=== PATIENT | female | born 1945 | race Caucasian/White ===

== ENCOUNTER 2022-12-11 17:04 | Inpatient (IN) | payer MEDICARE, OTHER, SELFPAY ==
--- NOTE | ~2022-12-11 | XR_ITS ---
EXAM: XR ankle RT min 3V, XR foot RT min 3V DATE: 12/11/2022 17:58 HISTORY: fall EARLIER TODAY WITH FX DX ALTHOUGH PRIOR XYS NOT AVAIL. . COMPARISON: None available. FINDINGS: Osseous detail obscured partially by overlying cast material. Decreased mineralization. Mil dly displaced transverse fracture of the right medial malleolus. Mildly displaced oblique fracture of the distal right fibula, with extension to the joint line (Sharp type B). Nondisplaced right posteri or malleolar fracture. Possible osseous fragment overlying the lateral aspect of the talus, difficult to visualize due to overlying cast material. No lytic or blastic lesion. Joint spaces are maintained . Achilles and plantar enthesopathy No erosion or periosteal change. Soft tissues within normal limit s. IMPRESSION: Trimalleolar right ankle fracture. Possible lateral talar process fracture. Reviewed, dictated and finalized at location K. IMPRESSION: Trimalleolar right ankle fracture. Possible lateral talar process f racture.
--- NOTE | ~2022-12-11 | XR_ITS ---
EXAMINATION: XR surgery orthopedic DATE: 12/12/2022 16:10 CDT INDICATION: ORIF RIGHT ANKLE . TECHNIQUE: 7 fluoroscopic images of the right ankle were obtained during right ankle ORIF performed b y the surgeon. I was not present in the operating room. Fluoroscopy exposure time was 54.7 seconds. A ir Kerma 2.89 mGy. DAP [id number] mGym2. COMPARISON: 12/11/2022 FINDINGS: The medial malleolus is fixated by cannulated screws. Intramedullary jonathan fixation of the distal fibul a. No unexpected radiopaque foreign body. IMPRESSION: Fluoroscopic documentation of right ankle ORIF. Please refer to the operative note for complete proce dural details. Reviewed, dictated and finalized at location K. IMPRESSION: Fluoroscopic documentation of right ankle ORIF. Please refer to the operative n ote for complete procedural details.
[2022-12-11 17:06] VITALS: BP 144/56; PULSE 67; RESP 17; TEMP 36.3; O2SAT 98
--- NOTE | 2022-12-11 17:26 | PC.NURSE ---
EDP at bedside to assess pt.
--- NOTE | 2022-12-11 17:49 | ED.GENADULT ---
HPI - General Adult General Chief complaint: Extremity Injury, Lower Stated complaint: right foot fracture Time Seen by Provider: 12/11/22 17:11 Source: patient Mode of arrival: ambulatory Limitations: no limitations History of Present Illness HPI narrative: This is a 77-year-old female who presents to the ED with chief complaint of a right ankle fracture diagnosed at an outside facility in [place] today. Patient states that she was walking downstairs and fell down 5 stairs during the injury and subsequently hurt her ankle. She was seen in an urgent care and diagnosed with right distal tibia-fibula fracture and was told she would likely need surgery. Patient states that she lives here and would rather have surgery here within [place]. She states she called someone who worked with Dr. Parikh and was told to come to the [facility] she may need surgery. She had the ankle splinted and that urgent care. Denies any further complaint. PMH hypothyroidism and HTN Related Data Home Medications Medication Instructions Recorded Confirmed escitalopram oxalate 10 mg tablet 20 mg PO DAILY 12/11/22 12/11/22 levothyroxine 100 mcg tablet 100 mcg PO DAILY 12/11/22 12/11/22 losartan 100 mg tablet 100 mg PO DAILY 12/11/22 12/11/22 omeprazole 20 mg capsule,delayed 20 mg PO DAILY 12/11/22 12/11/22 release Allergies Allergy/AdvReac Type Severity Reaction Status Date / Time No Known Allergies Allergy Verified 12/11/22 19:28 Review of Systems Review of Systems: CONSTITUTIONAL: Denies fever, chills, or sweats. SKIN: Denies rash or itching. MUSCULOSKELETAL: See HPI NEUROLOGIC: Denies headache, numbness, dizziness, or weakness. [facility] Family History Family History Father Heart attack Father Hypertension Social History Social History Smoking status: Never smoker Alcohol intake: current Drinks per week: 2 Substance use: never Lack of Transportation: No Lack of Food: Never True Current Housing: I Have Housing Concerned About Future Housing: No Difficulty Paying Gas/Electric Bills: No Difficulty Paying for Meds: No Currently Unemployed: No Education: High School Diploma/GED Difficulty w/ Childcare or Family Care: No Spiritual care concerns: No Exam Narrative: GENERAL: Well-appearing, well-nourished, and in no acute distress. Presents in wheelchair for mobility. EXTREMITIES: RLE: Presents in splint. Good cap refill. Neurovascularly intact distally. LLE: Benign. MSK exam is otherwise benign normal range of motion. No edema. SKIN: Warm, dry, no rash. NEURO: Alert and oriented x3. No focal deficits. PSYCH: Normal mood and affect. Course Course Emergency Course: Consult 1829: Spoke with Dr. Parikh (orthopedics) who recommends admission with surgery first thing in the morning. Vital Signs Vital signs: Vital Signs Temperature 97.3 F L 12/11/22 17:06 Pulse Rate 67 12/11/22 17:06 Respiratory Rate 17 12/11/22 17:06 Blood Pressure 144/56 H 12/11/22 17:06 Pulse Oximetry 98 12/11/22 17:06 Oxygen Delivery Room Air 12/11/22 17:06 Temperature 97.3 F L 12/11/22 17:06 Pulse Rate 67 12/11/22 17:06 Respiratory Rate 17 12/11/22 17:06 Blood Pressure 144/56 H 12/11/22 17:06 Pulse Oximetry 98 12/11/22 17:06 Oxygen Delivery Room Air 12/11/22 21:21 Medical Decision Making MDM Narrative Medical decision making narrative: This is a 77-year-old female who presents to the ED with chief complaint of right ankle fracture diagnosed in an outside facility. Patient was in [place] visiting family when this happened, however did not want to have surgery there so she came here today. Vitals are stable. She presents in a splint already placed. N/V intact distally. imaging of the right ankle does show a trimalleolar fracture with mild displacement. No further site of
[2022-12-11 19:33] LABS: Basophils Absolute Auto 0.1 K/mm3 (0.0-0.1); Basophils Percent Auto 0.5 % (0.2-1.2); Eosinophils Absolute Auto 0.2 K/mm3 (0-0.3); Eosinophils Percent Auto 1.2 % (0-4.4); Hematocrit 43.2 % (37.0-47.0); Hemoglobin 14.2 g/dL (12.0-15.0); Immature Granulocyte Absolute 0.04 K/mm3 (0.00-0.031); Immature Granulocyte Percent A 0.3 % (0-0.5); Lymphocytes Absolute Auto 5.43 K/mm3 (0.9-3.2); Lymphocytes Percent Auto 39.5 % (18.3-44.2); Mean Corpuscular HGB Conc 32.9 g/dl (32-36); Mean Corpuscular Hemoglobin 31.8 pg (26-34); Mean Corpuscular Volume 96.9 fl (80-100); Mean Platelet Volume 11.6 fl (7.4-10.4); Monocytes Absolute Auto 0.7 K/mm3 (0.1-0.6); Monocytes Percent Auto 4.9 % (2.6-8.5); Neutrophils Absolute Auto 7.4 K/mm3 (1.3-6.7); Neutrophils Percent Auto 53.6 % (45.5-73.1); Platelet Count Result 229 k/mm3 (150-375); Red Blood Count 4.46 M/mm3 (4.2-5.4); Red Cell Distribution Width 13.6 % (11.5-14.5); White Blood Count 13.8 K/mm3 (4.5-10.0)
[2022-12-11 19:52] LABS: Atypical Lymphocytes Present; Platelet Estimate Adequate (Adequate); Schistocytes None Seen (NORMAL)
[2022-12-11 19:53] LABS: Alanine Aminotransferase 44 U/L (6-35); Albumin Level 4.5 g/dL (3.5-5.1); Alkaline Phosphatase 93 U/L (38-126); Anion Gap 6 mmol/L (8-16); Aspartate Amino Transferase 43 U/L (14-36); Bilirubin,Total 0.6 mg/dL (0.2-1.3); Blood Urea Nitrogen 19 mg/dL (7-17); Carbon Dioxide 29 mmol/L (22-30); Chloride 103 mmol/L (98-107); Estimated CRCL calculation 50 ml/min; Estimated Glomerular Filt Rate > 60; Glucose 102 mg/dL (65-110); Sodium 138 mmol/L (137-145)
--- NOTE | 2022-12-11 20:54 | ADMGEN ---
This patient, Bre Meza, was admitted to Medical Room 246-01. Patient/family oriented to hospital policies and general routines including ID bracelet, bed and alarms, visiting hours, pain management, procedures, bathroom and other care routines, personal items, smoking policy, room service/diet, and visiting hours. Information on how to activate the Rapid Response Team has been discussed. Patient/Family are encouraged to report perceived risks to care and to ask questions if they do not understand what they are told or what they should do.
--- NOTE | 2022-12-11 22:40 | PM.IMHP ---
H&P: HPI History of Present Illness Date/Time: 12/11/22 22:40 Chief Complaint: Right ankle fracture Narrative: 77 yo woman twisted right ankle while out of town. Returned and presented to ER for eval. Found to have rt ankle fx. Admitted for further care. No prior problems with the right ankle. Ambulates without assistance. Review of Systems Constitutional: Constitutional: Denies fever(s) Eyes: Eyes: Denies blurry vision ENT: Reports Normal hearing present Cardiovascular: Cardiovascular: Denies chest pain and Denies dyspnea Respiratory: Respiratory: Denies dyspnea and Denies wheezing Gastrointestinal: Gastrointestinal: Denies abdominal pain Genitourinary: Genitourinary: Denies urinary urgency Musculoskeletal: Musculoskeletal: Reports as per HPI and Denies numbness Integumentary/Breasts: Skin/Breast: Denies changing lesions and Denies sores Neurologic: Reports Normal hearing present, Denies behavioral changes, Denies confusion, Denies numbness and Denies convulsions Psychiatric: Psychiatric: Denies behavioral changes, Denies confusion and Denies hallucinations Endocrine: Endocrine: Denies heat intolerance Hematologic/Lymphatic: Hematologic/Lymphatic: Denies easy bleeding Allergic/Immunologic: Allergic/Immunologic: Denies wheezing [facility] Family History Family History Father Heart attack Father Hypertension Social History Social History Smoking status: Never smoker Alcohol intake: current Drinks per week: 2 Substance use: never Lack of Transportation: No Lack of Food: Never True Current Housing: I Have Housing Concerned About Future Housing: No Difficulty Paying Gas/Electric Bills: No Difficulty Paying for Meds: No Currently Unemployed: No Education: High School Diploma/GED Difficulty w/ Childcare or Family Care: No Spiritual care concerns: No Meds Home Medications and Allergies Home Medications Medication Instructions Recorded Confirmed Type escitalopram oxalate 10 mg tablet 20 mg PO DAILY 12/11/22 12/11/22 History levothyroxine 100 mcg tablet 100 mcg PO DAILY 12/11/22 12/11/22 History losartan 100 mg tablet 100 mg PO DAILY 12/11/22 12/11/22 History omeprazole 20 mg capsule,delayed 20 mg PO DAILY 12/11/22 12/11/22 History release Allergies Allergy/AdvReac Type Severity Reaction Status Date / Time No Known Allergies Allergy Verified 12/11/22 19:28 Vital Signs Vital Signs - 24 hr 12/11/22 17:06 12/11/22 21:21 Temperature 97.3 F L Pulse Rate 67 Respiratory Rate 17 Blood Pressure 144/56 H Pulse Oximetry 98 Oxygen Delivery Room Air Room Air Exam Const: General: No confusion Orientation/consciousness: No confusion HENMT: Head: normal to inspection, normocephalic and atraumatic Eyes: Conjunctivae: conjunctivae normal Sclera: sclerae normal Neck: Neck: supple and nontender Chest: Chest palpation & inspection: normal inspection of the chest Resp: Effort & Inspection: normal respiratory effort and no audible wheezes Cardio: Rate: regular rate Rhythm: regular rhythm : General: Yes deferred Skin: General skin exam: no rashes or lesions noted Neuro: General: No confusion Extrem: General: capillary refill normal Right upper extremity: normal to inspection Left upper extremity: normal to inspection Right lower extremity: normal to inspection, hip/thigh Details: normal to inspection, knee Details: normal ROM and knee ligament exam normal, ankle Details: tenderness Location: of the lateral malleolus, of the medial malleolus and anteriorly, crepitus and other (good capillary refill in toes, 2+ DP pulse, light touch sensation intact) and foot Details: abnormal to inspection Details: a deformity Location: of the hallux valgus, tenderness Location: of the great toe Location: at the MTP joint and at the IP joint, abnormal
[2022-12-11] MEDS: HYDROcodone/acetaminophen (*CRX) 5-325 MG TABLET 1 TAB PO (22:54)
[2022-12-12] VITALS (14 sets, daily range): BP systolic 107–149; BP diastolic 44–85; PULSE 63–76; RESP 11–19; TEMP 36.2–37.3; O2SAT 92–100
[2022-12-12] MEDS: MORPHINE SULFATE (*CRX) 4 MG/ML INJ 3 MG IV PUSH ×2 (00:16→13:27)
[2022-12-12] MEDS: LEVOTHYROXINE SODIUM 100 MCG TABLET PO (05:33)
[2022-12-12 05:36] LABS: Basophils Absolute Auto 0.1 K/mm3 (0.0-0.1); Basophils Percent Auto 0.5 % (0.2-1.2); Eosinophils Absolute Auto 0.1 K/mm3 (0-0.3); Eosinophils Percent Auto 0.9 % (0-4.4); Immature Granulocyte Absolute 0.03 K/mm3 (0.00-0.031); Immature Granulocyte Percent A 0.3 % (0-0.5); Lymphocytes Absolute Auto 4.01 K/mm3 (0.9-3.2); Lymphocytes Percent Auto 36.3 % (18.3-44.2); Mean Corpuscular HGB Conc 32.5 g/dl (32-36); Mean Corpuscular Hemoglobin 31.5 pg (26-34); Mean Corpuscular Volume 96.9 fl (80-100); Mean Platelet Volume 11.5 fl (7.4-10.4); Monocytes Absolute Auto 0.7 K/mm3 (0.1-0.6); Monocytes Percent Auto 6.3 % (2.6-8.5); Neutrophils Absolute Auto 6.2 K/mm3 (1.3-6.7); Neutrophils Percent Auto 55.7 % (45.5-73.1); Platelet Count Result 189 k/mm3 (150-375); Red Blood Count 4.13 M/mm3 (4.2-5.4); Red Cell Distribution Width 13.6 % (11.5-14.5)
[2022-12-12 05:48] LABS: Anion Gap 6 mmol/L (8-16); Blood Urea Nitrogen 17 mg/dL (7-17); Calcium 8.6 mg/dL (8.4-10.2); Carbon Dioxide 28 mmol/L (22-30); Chloride 103 mmol/L (98-107); Estimated CRCL calculation 57 ml/min; Estimated Glomerular Filt Rate > 60; Glucose 111 mg/dL (65-110); Potassium 3.8 mmol/L (3.4-5.0); Sodium 137 mmol/L (137-145)
[2022-12-12 06:35] LABS: Atypical Lymphocytes Present; Platelet Estimate Adequate (Adequate); Schistocytes None Seen (NORMAL)
[2022-12-12] MEDS: PANTOPRAZOLE 40 MG TABLET PO (09:08)
[2022-12-12] MEDS: SENNA/DOCUSATE SODIUM TABLET 2 TAB PO ×2 (09:08→18:33)
[2022-12-12] MEDS: ESCITALOPRAM OXALATE 10 MG TABLET 20 MG PO (09:08)
[2022-12-12] MEDS: LOSARTAN POTASSIUM 100 MG TABLET PO (09:08)
--- NOTE | 2022-12-12 13:46 | WPDHPUPDATE1 ---
History and Physical Update Update Date/Time: 12/12/22 13:46 History and Physical has been reviewed, including an updated exam of the patient. There are NO changes in the patient's condition. Risks, benefits, and alternatives have been discussed and questions answered. Patient agrees to proceed with procedure.
[2022-12-12] MEDS: ACETAMINOPHEN 500 MG TABLET 1000 MG PO (15:00)
[2022-12-12] MEDS: LACTATED RINGERS 1,000 ML 30 ML IV CONT (15:00)
[2022-12-12] MEDS: KETOROLAC 15 MG/ML VIAL (*BKC) IV PUSH (15:23)
--- NOTE | 2022-12-12 15:25 | WPDANESEPPF ---
Anes - Initial Pre Proc Eval Procedure: Operation Date: 12/12/22 16:00 Proposed Procedures p Open Redution Internal Fixation Right Ankle Fracture - Jose L Parikh MD Date/Time: 12/12/22 15:25 Surgeon: Jose L Parikh MD Pre Op Diagnosis: right trimalleolar fx Patient Data Age: 77 Gender: F Height: 1.57 m Weight: 77 kg Last Vital Signs Temp 36.5 C 12/12/22 15:02 Pulse 66 12/12/22 15:02 Resp 16 12/12/22 15:02 BP 118/85 12/12/22 15:02 Pulse Ox 96 12/12/22 15:02 O2 Del Method Room Air 12/12/22 15:02 Allergies Allergy/AdvReac Type Severity Reaction Status Date / Time No Known Allergies Allergy Verified 12/12/22 14:55 Home Medications Medication Instructions Recorded Confirmed Type escitalopram oxalate 10 mg tablet 20 mg PO DAILY 12/11/22 12/11/22 History levothyroxine 100 mcg tablet 100 mcg PO DAILY 12/11/22 12/11/22 History losartan 100 mg tablet 100 mg PO DAILY 12/11/22 12/11/22 History omeprazole 20 mg capsule,delayed 20 mg PO DAILY 12/11/22 12/11/22 History release Laboratory Tests 12/11/22 12/11/22 12/12/22 19:27 19:27 05:21 WBC 13.8 K/mm3 H K/mm3 11.0 K/mm3 H K/mm3 (4.5-10.0) (4.5-10.0) RBC 4.46 M/mm3 M/mm3 4.13 M/mm3 L M/mm3 (4.2-5.4) (4.2-5.4) Hgb 14.2 g/dL g/dL 13.0 g/dL g/dL (12.0-15.0) (12.0-15.0) Hct 43.2 % % 40.0 % % (37.0-47.0) (37.0-47.0) MCV 96.9 fl fl 96.9 fl fl (80-100) (80-100) MCH 31.8 pg pg 31.5 pg pg (26-34) (26-34) MCHC 32.9 g/dl g/dl 32.5 g/dl g/dl (32-36) (32-36) RDW 13.6 % % 13.6 % % (11.5-14.5) (11.5-14.5) Plt Count 229 k/mm3 k/mm3 189 k/mm3 k/mm3 (150-375) (150-375) MPV 11.6 fl H fl 11.5 fl H fl (7.4-10.4) (7.4-10.4) Immature Gran % (Auto) 0.3 % % 0.3 % % (0-0.5) (0-0.5) Neut % (Auto) 53.6 % % 55.7 % % (45.5-73.1) (45.5-73.1) Lymph % (Auto) 39.5 % % 36.3 % % (18.3-44.2) (18.3-44.2) [place] % (Auto) 4.9 % % 6.3 % % (2.6-8.5) (2.6-8.5) Eos % (Auto) 1.2 % % 0.9 % % (0-4.4) (0-4.4) Baso % (Auto) 0.5 % % 0.5 % % (0.2-1.2) (0.2-1.2) Lymph # (Auto) 5.43 K/mm3 H K/mm3 4.01 K/mm3 H K/mm3 (0.9-3.2) (0.9-3.2) [place] # (Auto) 0.7 K/mm3 H K/mm3 0.7 K/mm3 H K/mm3 (0.1-0.6) (0.1-0.6) Eos # (Auto) 0.2 K/mm3 K/mm3 0.1 K/mm3 K/mm3 (0-0.3) (0-0.3) Baso # (Auto) 0.1 K/mm3 K/mm3 0.1 K/mm3 K/mm3 (0.0-0.1) (0.0-0.1) Abs Immat Gran (auto) 0.04 K/mm3 H K/mm3 0.03 K/mm3 K/mm3 (0.00-0.031) (0.00-0.031) Absolute Neuts (auto) 7.4 K/mm3 H K/mm3 6.2 K/mm3 K/mm3 (1.3-6.7) (1.3-6.7) Absolute Nucleated RBC 0.0 K/mm3 K/mm3 0.0 K/mm3 K/mm3 (0.0-0.012) (0.0-0.012) Nucleated RBC % 0.0 % % 0.0 % % (0.0-0.2) (0.0-0.2) Atypical Lymphocytes Present Present Platelet Estimate Adequate Adequate (Adequate) (Adequate) Schistocytes None seen None seen (NORMAL) (NORMAL) Sodium 138 mmol/L mmol/L (137-145) Potassium 4.0 mmol/L mmol/L (3.4-5.0) Chloride 103 mmol/L mmol/L (98-107) Carbon Dioxide 29 mmol/L mmol/L (22-30) Anion Gap 6 mmol/L L mmol/L (8-16) BUN 19 mg/dL H mg/dL (7-17) Creatinine 0.80 mg/dL mg/dL (0.7-1.0) Estim Creat Clear Calc 50 ml/min ml/min Estimated GFR > 60 (59 - ) Glucose 102 mg/dL mg/dL (65-110) Calcium 9.0 mg/dL mg/dL (8.4-10.2) Total Bilirubin 0.6 mg/dL mg/dL (0.2-1.3) AST 43 U/L H U/L (14-36) ALT 44 U/L H U/L (6-35) Alkaline Phosphatase 93 U/L U/L (38-126) Total Protein 7.0 g/dL g/dL (6.3-8.2) Albumin 4.5 g/dL g/dL (3.5-5.1) 12/12/22 05:21 WBC RBC Hgb Hct MCV MCH MCHC RDW Plt Count MPV I
[2022-12-12] MEDS: ceFAZolin 2 GM/D5W 50 ML 2 GM/50 ML BAG IVPB (15:54)
[2022-12-12] MEDS: BUPIVACAINE/EPINEPHRINE 0.5% 50 ML VIAL INFILTRATE (16:24)
--- NOTE | 2022-12-12 17:09 | W.PM.PROC2 ---
Procedure Note - Detailed Date of Procedure 12/12/22 Pre-op Diagnosis right trimalleolar fx Post-op Diagnosis Same Procedure Performed Open reduction internal fixation right ankle trimalleolar fracture medial and lateral malleolus fixation only. Surgeon Jose L Parikh MD [employer] [address] anatomic pathology assistant Anesthesia General Indications 77-year-old woman with right ankle trimalleolar fracture with displacement And instability. Desires operative treatment. Description of Procedure Patient is a 77 year-old woman who sustained an injury to the right ankle. Radiographs show distal fibular fracture with displacement. Medial malleolus fracture with displacement and posterior malleolus fracture. Widening of the ankle mortise noted. Patient presents for operative treatment. Full discussion of the risks, benefits and alternatives of surgery was had with the patient. Questions answered. Patient verbalizes understanding and wishes to proceed. What was done: After informed consent, the operative extremity was marked in the preoperative holding area. Patient received intravenous antibiotics. Patient was then taken to the operating room and underwent general anesthesia by the anesthesia team. Positioned supine on the operating room table with a soft bump under the ipsilateral hip. A time-out was performed confirming the patient, site of the surgery, operative plan. Lower extremity then prepped and draped in the usual sterile surgical fashion using ChloraPrep skin solution. Foot and ankle exsanguinated and a thigh tourniquet inflated to 250 mmHg. Longitudinal incision made over the lateral ankle distal fibula with a 15 blade knife. Hemostasis controlled with electrocautery. Full-thickness soft tissue flaps developed and the fascia was incised in line with the skin incision. Fracture identified and cleared with a dental pick, irrigation and rongeur. Fracture reduced and held with bone-holding clamp. Image intensification confirmed reduction of the fracture and the ankle mortise. Fixation achieved with intramedullary fibular nail. Small incision made distal to the fibula and blunt dissection to the distal tip of the fibula. Guide pin placed across the fracture into the intramedullary canal. Reaming then performed. Intramedullary nail placed and secured proximally with the internal device. Distal fixation occurred with the 2.7 mm screws x2. Image intensification used to confirm reduction of the fracture and placement of the hardware. Medial side then addressed. Longitudinal incision made with a 15 blade knife over the medial malleolus fracture. Hemostasis controlled with electrocautery. Fascia incised in line with skin incision. Periosteum cleared from the medial malleolus fracture. Medial side of the joint inspected and noted to have mild amount of trauma to the chondral surface. Thorough irrigation of the ankle joint and suctioned out. Fracture reduced and provisionally pinned. Fixation achieved with 4.0 mm partially threaded cancellous screws x2 placed in cannulated screw fashion. Image intensification confirmed reduction of the fracture and placement of the hardware. Stress of the ankle performed with good stability of the ankle mortise in all directions. Posterior malleolus noted to be reduced and stable. tib-fib syndesmosis noted to be stable. Wounds thoroughly irrigated with solution. Subcutaneous tissue repaired with 000 Monocryl interrupted suture and Skin approximated with 3-0 Monocryl interrupted suture. Sterile dressings applied followed by bulky dressing and splint. Patient awoken from anesthesia, extubated and taken to the recovery room in stable condition. All sponge, needle and instrument counts correct at the end of the case. Palpable dorsalis pedis pulse noted prior to dressing. Implants Arthrex fibular nail with 4.0 mm cannulated screws x2 Estimated Blood Loss 5 Tourniquet Time 40 Drains No Packing No Pathology None sent Complicati
--- NOTE | 2022-12-12 17:32 | SUR.PHASEI ---
1732: Simple mask removed.
[2022-12-12] MEDS: KCL 20 MEQ/D5/0.45% SOD CHL 1,000 ML 80 ML IV CONT (18:32)
[2022-12-12] MEDS: ceFAZolin 1 GM/NS 50 ML 1 GM/50 ML BAG IVPB (21:17)
[2022-12-13 03:35] VITALS: BP 117/49; PULSE 59; RESP 17; TEMP 36.6; O2SAT 95
[2022-12-13] MEDS: ceFAZolin 1 GM/NS 50 ML 1 GM/50 ML BAG IVPB ×2 (05:28→13:30)
[2022-12-13] MEDS: LEVOTHYROXINE SODIUM 100 MCG TABLET PO (05:28)
[2022-12-13] MEDS: ESCITALOPRAM OXALATE 10 MG TABLET 20 MG PO (09:37)
[2022-12-13] MEDS: LOSARTAN POTASSIUM 100 MG TABLET PO (09:37)
[2022-12-13] MEDS: polyethylene glycoL 3350 17 GM POWD.PACK PO (09:37)
[2022-12-13] MEDS: hydrOXYzine pamoate 25 MG CAPSULE 50 MG PO (09:37)
[2022-12-13 09:38] VITALS: RESP 18; O2SAT 95
[2022-12-13] MEDS: SENNA/DOCUSATE SODIUM TABLET 2 TAB PO (09:38)
[2022-12-13] MEDS: PANTOPRAZOLE 40 MG TABLET PO (09:38)
[2022-12-13 10:20] VITALS: BP 124/68; PULSE 66; RESP 14; TEMP 36.5; O2SAT 97
[2022-12-13 10:32] VITALS: O2SAT 94
--- NOTE | 2022-12-13 12:27 | PM.PNORT ---
Progress Note: A&P Assessment and Plan (1) Closed right trimalleolar fracture: Qualifiers: Encounter type: initial encounter Qualified Code(s): S82.851A - Displaced trimalleolar fracture of right lower leg, initial encounter for closed fracture Code(s): S82.851A - Displaced trimalleolar fracture of right lower leg, initial encounter for closed fracture Status: Acute Assessment and Plan: POD #1 : ORIF Right Ankle Continue PT/OT. NWB RLE. Walker. HIGH FALL RISK. Continue pain control. Ice ankle. Protect skin. SCDs. Incentive Spirometry Use reviewed. Keep splint c/d/i. Bowel Regimen. Dispo: Home, self care Follow up in 1 week Subjective Subjective Date/Time Seen: 12/13/22 12:27 Post Op day: 1 Principal diagnosis: Right Ankle Fracture Interval history: POD #1: ORIF Right Ankle Patient doing well. Pain well controlled. No new concerns. Working well with PT/OT. Hopeful for d/c home today. Review of Systems Review of Systems: All systems reviewed & are unremarkable except as noted in HPI and below Constitutional: Constitutional: Denies chills, Denies fatigue and Denies fever(s) Cardiovascular: Cardiovascular: Reports no additional cardiovascular complaints Respiratory: Respiratory: Reports no additional respiratory complaints and Denies dyspnea Gastrointestinal: Gastrointestinal: Reports no additional gastrointestinal complaints Genitourinary: Genitourinary: Reports no additional female genitourinary complaints Musculoskeletal: Musculoskeletal: Reports as per HPI Exam Const: General: comfortable and no acute distress Resp: Effort & Inspection: normal respiratory effort Cardio: Rate: regular rate Rhythm: regular rhythm GI: GI Palp: Yes Soft to palpation and No Guarding due to palpation present (GI) Skin: Wounds: no wounds Neuro: Speech: normal speech Sensory Exam: normal sensation Extrem: General: normal to inspection Psych: Affect: normal affect Objective Data Vital Signs Vital Signs: Vital Signs - 24 hr 12/12/22 15:02 12/12/22 16:55 12/12/22 17:10 Temperature 36.5 C 37.3 C Pulse Rate 66 76 67 Respiratory Rate 16 12 11 L Blood Pressure 118/85 149/69 H 117/54 L Pulse Oximetry 96 100 100 Oxygen Delivery Room Air Simple Face Mask Simple Face Mask Oxygen Flow Rate 6 8 12/12/22 17:20 12/12/22 17:25 12/12/22 17:40 Temperature Pulse Rate 76 75 70 Respiratory Rate 16 13 13 Blood Pressure 121/50 L 137/60 131/61 Pulse Oximetry 98 100 92 Oxygen Delivery Simple Face Mask Simple Face Mask Room Air Oxygen Flow Rate 8 8 12/12/22 17:55 12/12/22 18:04 12/12/22 18:19 Temperature 36.2 C L 36.2 C L Pulse Rate 69 68 65 Respiratory Rate 12 16 12 Blood Pressure 107/80 137/49 L 130/52 L Pulse Oximetry 97 97 98 Oxygen Delivery Nasal Cannula Oxygen Flow Rate 2 12/12/22 18:49 12/12/22 19:49 12/12/22 22:17 Temperature 36.2 C L 36.8 C Pulse Rate 64 63 Respiratory Rate 14 17 Blood Pressure 131/53 L 116/56 L Pulse Oximetry 98 96 94 Oxygen Delivery Oxygen Flow Rate 12/12/22 23:34 12/13/22 03:35 12/13/22 07:53 Temperature 36.6 C 36.6 C Pulse Rate 63 59 L Respiratory Rate 17 17 Blood Pressure 136/44 L 117/49 L Pulse Oximetry 92 95 Oxygen Delivery Room Air Oxygen Flow Rate 12/13/22 08:35 12/13/22 09:38 12/13/22 10:20 Temperature 36.5 C Pulse Rate 66 Respiratory Rate 18 14 Blood Pressure 124/68 Pulse Oximetry 95 97 Oxygen Delivery Room Air Room Air Oxygen Flow Rate 12/13/22 10:32 Temperature Pulse Rate Respiratory Rate Blood Pressure Pulse Oximetry 94 Oxygen Delivery Room Air Oxygen Flow Rate Intake/Output Intake/Output: Intake & Output 12/10/22 12/11/22 12/12/22 12/13/22 23:59 23:59 23:59 23:59 Intake Total 650 530 Output Total 460 Balance 650 70 Meds/Results Medications: Active Medications Generic Name Dose Route Start Last Admin Trade Name Freq
--- NOTE | 2022-12-13 12:39 | PM.DS ---
DS: Admitting Diagnosis Discharge Date Admitting Diagnosis Right Ankle Fracture DS: Discharge Diagnosis Discharge Diagnosis (1) Closed right trimalleolar fracture: Qualifiers: Encounter type: initial encounter Qualified Code(s): S82.851A - Displaced trimalleolar fracture of right lower leg, initial encounter for closed fracture Code(s): S82.851A - Displaced trimalleolar fracture of right lower leg, initial encounter for closed fracture Status: Acute Assessment and Plan: POD #1: ORIF Right Ankle Continue PT/OT. NWB RLE. Walker. HIGH FALL RISK. Continue pain control. Ice ankle. Protect skin. SCDs. Incentive Spirometry Use reviewed. Keep splint c/d/i. Bowel Regimen. Dispo: Home, self care Follow up in 1 week DS: Summary Hospital Course Reason for hospitalization: Right Ankle Fracture Hospital Course: 77 year old female admitted s/p right ankle fracture for right ankle ORIF, pain control and mobilization with PT/OT. Patient progressed well with PT/OT. Pain and vitals remained stable throughout. The patient has been cleared to be discharged home at this time. All discharge care instructions reviewed at depth. New medications reviewed. Follow up planned for 1 week in the outpatient orthopedic clinic with Dr. Parikh for cast change. Status at Discharge Functional status at discharge: uses cane/walker Overall status at discharge: patient is progressing back to baseline Time Spent with Patient Time attestation: Total time spent providing and/or coordinating discharge services: Exam Const: General: comfortable and no acute distress; No confusion Orientation/consciousness: No confusion HENMT: Head: normal to inspection, normocephalic and atraumatic Eyes: Conjunctivae: conjunctivae normal Sclera: sclerae normal Neck: Neck: supple and nontender Chest: Chest palpation & inspection: normal inspection of the chest Resp: Effort & Inspection: normal respiratory effort and no audible wheezes Cardio: Rate: regular rate Rhythm: regular rhythm : General: Yes deferred Skin: General skin exam: no rashes or lesions noted Wounds: no wounds Neuro: General: No confusion Cranial nerves: Yes Normal hearing present Speech: normal speech Sensory Exam: normal sensation Extrem: General: normal to inspection and capillary refill normal Right upper extremity: normal to inspection Left upper extremity: normal to inspection Right lower extremity: normal to inspection, hip/thigh Details: normal to inspection, knee Details: normal ROM and knee ligament exam normal, ankle Details: tenderness Location: of the lateral malleolus, of the medial malleolus and anteriorly, crepitus and other (good capillary refill in toes, 2+ DP pulse, light touch sensation intact) and foot Details: abnormal to inspection Details: a deformity Location: of the hallux valgus, tenderness Location: of the great toe Location: at the MTP joint and at the IP joint, abnormal ROM of toe Details: pain with active ROM and pain with passive ROM, vascular exam Details: dorsalis pedis pulse present and normal capillary refill and motor-sensory exam Details: two point discrimination normal Location: in all toes and light-touch normal Location: in all toes Left lower extremity: hip/thigh Details: normal to inspection, knee Details: normal to inspection and knee ligament exam normal Details: anterior drawer test normal, valgus stress test normal, varus stress test normal and Nika's test normal, ankle (no calf tenderness) Details: crepitus Details: at the lateral malleolus and other ( good capillary refill in toes, 2+ DP pulse, light touch sensation intact) and foot Details: normal capillary refill, vascular exam Details: dorsalis pedis pulse present and motor-sensory exam light-touch normal; no tenderness Psych: Affect: normal affect Discharge Plan Discharge Attending physician on discharge: Jose L Parikh Consulting providers
[2022-12-13] MEDS: HYDROcodone/acetaminophen (*CRX) 5-325 MG TABLET 1 TAB PO (13:34)
== END 2022-12-13 14:40 | disposition home or self-care (01) | DRG 494 ==
LOC: ANHED 19:14 → ANH2MED 19:57
PROVIDERS: Admitting Provider Orthopaedic Surgery; Emergency Provider Physician Assistant; PCP Internal Medicine; Visit Provider Nurse Practitioner Family
PROC: 0QSJ04Z Reposition Right Fibula with Internal Fixation Device, Open Approach (ICD-10-PCS; principal; 2022-12-12 16:00)
DX: S82.851A Displaced trimalleolar fracture of right lower leg, initial encounter for closed fracture (principal); E03.9 Hypothyroidism, unspecified; I10 Essential (primary) hypertension; Z82.49 Family history of ischemic heart disease and other diseases of the circulatory system; Z79.899 Other long term (current) drug therapy; W10.9XXA Fall (on) (from) unspecified stairs and steps, initial encounter
CPT/HCPCS: 36415; 73610; 73630; 80048; 80053; 85025; 97161; 97165; 97535; 99199; 99285; A9270; C1713; C1769; J0690; J1100; J1170; J1885; J2270; J2370; J2405; J2704; J3010; J3480; J7120

== ENCOUNTER 2025-01-03 12:14 | Emergency (ER) | payer MEDICARE, OTHER, SELFPAY ==
--- NOTE | ~2025-01-03 | XR_ITS ---
EXAMINATION: XR chest 2V DATE: 01/03/2025 13:48 INDICATION: Syncope TECHNIQUE: frontal and lateral views of the chest were obtained. COMPARISON: None FINDINGS: The lungs are clear with no focal airspace opacities, pulmonary edema, pleural effusion or pneumothor ax. The cardiomediastinal silhouette is normal. Mild thoracic and moderate upper lumbar spondylosis w ith chronic appearing mild anterior wedging of a midthoracic vertebral body. Cholecystectomy clips in the right upper quadrant. IMPRESSION: 1. No acute cardiopulmonary disease. Reviewed, dictated and finalized at location A.
[2025-01-03 12:18] VITALS: BP 122/62; PULSE 53; RESP 18; TEMP 36.2; O2SAT 97
--- NOTE | 2025-01-03 12:58 | ECG_ITS ---
Test Date: 2025-01-03 15:06:51 Measurements Intervals [place] Rate: 55 P: 56 MA: 145 QRS: 52 QRSD: 80 T: 88 QT: 360 QTc: 347 Interpretive Statements SINUS BRADYCARDIA NONSPECIFIC T-WAVE ABNORMALITY ABNORMAL ECG No previous ECG available for comparison Electronically Signed On 01-04-2025 08:00:42 CDT by Peter Kwon M.D.
--- OUTSIDE RECORDS SUMMARY | 2025-01-03 13:04 | XMS_ITS | Encounter Summary ---
Author Organization [facility] Address [address] [place] [address] Care Team Providers Care Recreation Attendant Name Role Phone Davi Hoover MD Primary Care Provider [phone] Aster Preston DO Primary Care Provider [phone] Encounter Details Date Type Department Care Team (Late st Contact Info) Description 07/29/2020 Lab Requisition [facility] DermPath Lab [address] [place] [address] Mina Canales MD [address] [place] [address] Social History Tobacco Use Types Packs/Day Years Used Date Smoking Tobacco: Never Assessed Comments Unknown Sex and Gender Information Value Date Recorded Sex Assigned at Not on file Legal Sex Female 12:02 PM CDT Gender Identity Not on file Sexual Orientation Not on file documented as of this encounter Plan of Treatment Not on file documented as of this encounter Procedures Procedure Name Priority Date/Time Associated Diagnosis Comments DERMATOPATHOLOGY Routine 07/28/2020 12:0 0 AM [facility] documented in this encounter Results * DERMATOPATHOLOGY (07/28/2020 12:00 AM DAMPPROOFER) Case Report Dermatopathology Report Case: [id number] Authorizing Provider: Mina Canales MD Collected: 07/28/2020 12:00 AM Ordering Location: [facility] DermPath Lab Received: 07/29/2020 12:32 PM Pathologist: Lupe Vogt MD Specimens: A) - Skin, left lower anteromedial de B) - Skin, dorsal left hand 0 4:02 PM [facility] DERMATOPATHOLOGY LABORATORY Final Diagnosis Specimen A. SKIN, left lower anteromedial de: DERMAL SCAR WITH OVERLYING EPIDERMAL CHANGES (L90.5) PRESENT AT MARGIN Specimen B. 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 Check margins. B: R/O SCC, Jo's, ISK. 0 4:02 PM [facility] DERMATOPATHOLOGY LABORATORY Gross Description Specimen A: Received is one formalin filled container labeled with the patient's name and designated left lower anteromedial de. The specimen consists of a curettage and desiccation biopsy (2 pieces) measuring [id number], margin inked green, & [id number]. Jar 0. Specimen B: Received is one formalin filled container labeled with the patient's name and designated dorsal left hand. The specimen consists of a shave biopsy measuring [id number]. Jar 0. 0 4:02 PM [facility] DERMATOPATHOLOGY LABORATORY Microscopic Description Specimen A. SKIN, left lower anteromedial de: Sections show focally laminated fibroplasia and prominent blood vessels. There are plump fibrocytes and inflammation. Reactive epidermal changes are also identified consistent with a prior biopsy site. This lesion is present at the margin of the specimen. Specimen B. SKIN, dorsal left hand: There is hyperkeratosis alternating with parakeratosis. There is epidermal hyperplasia with disorderly maturation of keratinocytes with nuclear pleomorphism confined to the lower half of the epidermis. 0 4:02 PM [facility] DERMATOPATHOLOGY LABORATORY Disclaimer An external and internal positive and negative controls are appropriate for the histochemical, immunohistochemical and immunofluorescence stain(s) in this case (if any), except where stated explicitly. The performance characteristics of the stain(s) cited in this report were developed and its performance characteristic determined by the Dermatopathology Laboratory at [facility], directed by Dr. Doretha Vogt. These tests need not be, and therefore are not, approved by the [place] Food and Drug Administration. The tests are used for clinical purposes. Billing Codes Specimen Charges Stain Charges 05813 39103 1 1 0 4:02 PM [facility] DERMATOPATH[facility]Y LABORATORY Embedded Images 0 4:02 PM [facility] DERMATOPATH[facility]Y LABORATORY Pathology/Cytology TISSUE SPECIMEN FROM SKIN / Unknown 07/28/2020 07/29/2020 12:32 PM D[facility]PROOFER Miscellaneous samples (specimen) TISSUE SPECIMEN FROM SKIN / Unknown 07/28/2020 07/29/2020 12:32 PM DAMPPROOFER Mina Canales MD LAB - PATHOLOGY/CYTOLOGY ORD ERABLES Final Result DERMATOPATHOLOGY LABORATORY [facility] - Department of Dermatology [facility] [address] [place] [address], [address] [phone] documented in this encounter Visit Diagnoses Not on filedocumented in this encounter Care Teams Recreation Attendant Relationship Specialty Start Date End Date Davi Hoover MD PCP - General Family Medicine 05/16/14 07/07/24 Aster Preston DO [address] [place] [phone] PCP - General Family Medicine 07/08/24 documented as of this encounter
--- OUTSIDE RECORDS SUMMARY | 2025-01-03 13:04 | XMS_ITS | Encounter Summary ---
Author Organization [facility] Address [address] [place] [address] Care Team Providers Care Screen Printer Name Role Phone Davi Hoover MD Primary Care Provider [phone] Aster Preston DO Primary Care Provider [phone] Encounter Details Date Type Department Care Team (Late st Contact Info) Description 06/05/2024 Lab Requisition [facility] Physician [facility] - DermPath Lab [address] [facility] [place] [phone] Mina Canales MD [address] [place] [address] Social History Tobacco Use Types Packs/Day Years [...] Priority Date/Time Associated Diagnosis Comments DERMATOPATHOLOGY Routine 06/04/2024 3:33 AM CDT documented in this encounter Results * DERMATOPATHOLOGY (06/04/2024 3:33 AM CDT) Case Report Dermatopathology Report Case: [id number] Authorizing Provider: Mina Canales MD Collected: 06/04/2024 03:33 AM Ordering Location: [facility] Physician [facility] - Received: 06/05/2024 03:02 PM DermPath Lab Pathologist: Noelle Villanueva MD Specimen: Skin, right cheek 1:41 PM T DERMATOPATHOLOGY LABORATORY Final Diagnosis Specimen A. SKIN, right cheek: SQUAMOUS CELL CARCINOMA IN SITU, PRESENT AT THE BASE OF THE SPECIMEN (D04.39) (see microscopic description and comment) 1:41 PM [facility] DERMATOPATHOLOGY LABORATORY Clinical History R/o SCC vs BCC 1:41 PM T DERMATOPATHOLOGY LABORATORY Gross Description Specimen A: Received is one formalin filled container labeled with the patient's name and designated right cheek. The specimen consists of a shave biopsy measuring 6x5x2 mm. Jar 0. 1:41 PM [facility] DERMATOPATHOLOGY LABORATORY Microscopic Description Specimen A. SKIN, right cheek: The epidermis shows parakeratosis, full thickness disorderly maturation of keratinocytes, mitoses at different levels, and dyskeratotic cells. The lesion extends to the base of the biopsy. COMMENT: An invasive squamous cell carcinoma cannot be ruled out. 1:41 PM [facility] DERMATOPATHOLOGY LABORATORY Disclaimer An external and internal positive and negative controls are appropriate for the histochemical, immunohistochemical and immunofluorescence stain(s) in this case (if any), except where stated explicitly. The performance characteristics of the stain(s) cited in this report were developed and its performance characteristic determined by the Dermatopathology Laboratory at [facility], directed by Dr. Doretha Vogt. These tests need not be, and therefore are not, approved by the [place] Food and Drug Administration. The tests are used for clinical purposes. Billing Codes Specimen Charges Stain Charges 39954 1 1:41 PM CDT DERMATOPATHOLOGY LABORATORY Embedded Images 1:41 PM CDT DERMATOPATHOLOGY LABORATORY Pathology/Cytolo gy TISSUE SPECIMEN FROM SKIN / Unknown 06/04/2024 3:33 AM CDT 06/05/2024 3:02 PM CDT us Mina Canales MD LAB - PATHOLOGY/CYTOLOGY ORD ERABLES Final Result DERMATOPATHOLOGY LABORATORY [facility] - Department of Dermatology [address], [address] [phone] documented in this encounter Visit Diagnoses Not on filedocumented in this encounter Care Teams Screen Printer Relationship Specialty Start Date End Date Davi Hoover MD PCP - General Family Medicine 05/16/14 07/07/24 Aster Preston DO [address] [place] [phone] PCP - General Family Medicine 07/08/24 documented as of this encounter
--- OUTSIDE RECORDS SUMMARY | 2025-01-03 13:04 | XMS_ITS | Encounter Summary ---
Author Organization [facility] Address [address] [place] [address] Phone Care Team Providers Care Electrician Marine Name Role Phone Melissa Tenorio APRN, CNP Primary Care Provid er Aster Preston DO Primary Care Provider [phone] Reason for Visit * Reason Comments Medication Refill Encounter Details Date Type Department Care Team (Late Contact Info) Description 11/22/2021 Refill [facility] - Family Medicine [facility] [address] [place] [address] Davi Hoover MD [address] [address] Medication Refill Social History Tobacco Use Types Packs/Day Years Used Date Smoking Tobacco: Never Smokeless Tobacco: Never Alcohol Use Standard Drinks/Week Comments Yes 2 (1 standard drink = 0.6 oz pur e alcohol) PHQ-2 Answer Date Recorded Total Score - Questions 1-9 0 04/22 Sexually Active Control Partners Comments Never Comments No Sex and Gender Information Value Date Recorded Sex Assigned at Not on file Legal Sex Female 7:44 PM CDT Gender Identity Not on file Sexual Orientation Not on file documented as of this encounter Plan of Treatment Upcoming Encounters Date Type Department Care Team (Late st Contact Info) Description 02/13/2025 9:20 AM CDT Office Visit [facility] - Family Medicine - [place] [address] [place] [address] Aster Preston DO [address] [facility] [address] [facility] [address] [place] [address] documented as of this encounter Visit Diagnoses Not on filedocumented in this encounter Additional Health Concerns Assessment Noted Time PHQ-9 Depression Total Score: 0 05/12/20 21 1:00 PM CDT documented as of this encounter Care Teams Electrician Marine Relationship Specialty Start Date End Date Melissa Tenorio APRN, SALAD BAR CLERK [address] [phone] PCP - General Advanced Practice Nurse 06/08/21 Aster Preston DO [address] [facility] [address] [address] PCP - General Family Medicine 12/19/23 documented as of this encounter
--- OUTSIDE RECORDS SUMMARY | 2025-01-03 13:04 | XMS_ITS | Encounter Summary ---
Author Organization [facility] Address [address] [place] [address] Phone Care Team Providers Care Through Operator Name Role Phone Aster Preston DO Primary Care Provider [phone] Reason for Visit * Reason Comments Medication Refill Encounter Details Date Type Department Care Team (Late st Contact Info) Description 02/02/2024 Refill [facility] - Family Medicine - [place] [address] [place] [address] Melissa Tenorio APRN, PRODUCT TEST ENGINEER [address] [phone] Medication Refill Social History Tobacco Use Types Packs/Day Years Used Date Smoking Tobacco: Never Smokeless Tobacco: Never Alcohol Use Standard Drinks/Week Comments Yes 2 (1 standard drink = 0.6 oz pur e alcohol) [facility] Utilities Answer Date Recorded In the past 12 months has e electric, gas, oil, or water company threatened to shut off services in your home? No 12/19/2023 Social Connection and Isolat ion Panel [NHANES] Answer Date Recorded In a typical week, how many times do you talk on the phone with family, friends, or neighbors? More than three times a week 12/19/2023 How often do you get togethe r with friends or relatives? Twice a week 12/19/2023 How often do you attend chur ch or christian services? More than 4 times per year 12/19/2023 Do you belong to any clubs o r organizations such as gnosticism groups, unions, fraternal or athletic groups, or school groups? Yes 12/19/2023 How often do you attend meet ings of the clubs or organizations you belong to? 1 to 4 times per year 12/19/2023 Are you , , di vorced, , never , or living with a partner? 12/19/2023 AUDIT-C Answer Date Recorded Q1: How often do you have a drink containing alc ohol? 2-3 times a week 12/19/2023 Q2: How many drinks containi ng alcohol do you have on a typical day when you are drinking? 1 or 2 12/19/2023 Q3: How often do you have si x or more drinks on one occasion? Never 12/19/2023 Overall Financial Resource Strain (CARDIA) Answe r Date Recorded How hard is it for you to pa y for the very basics like food, housing, medical care, and heating? Not hard at all 12/19/2023 PHQ-2 Answer Date Recorded Total Score - Questions 1-9 0 05/21 [facility] [place] [facility] Occupat ional Health - Occupational Stress Questionnaire Answer Date Recorded Do you feel stress - tense, restless, nervous, or anxious, or unable to sleep at night because your mind is troubled all the time - these days? Only a little 12/19/2023 Exercise Vital Sign Answer Date Recorde d On average, how many days pe r week do you engage in moderate to strenuous exercise (like a brisk walk)? 4 days 12/19/2023 On average, how many minutes do you engage in exercise at this level? 50 min 12/19/2023 Hunger Vital Sign Answer Date Recorded Within the past 12 months, y ou worried that your food would run out before you got the money to buy more. Never true 12/19/19 24 Within the past 12 months, t he food you bought just didn't last and you didn't have money to get more. Never true 12/19/2023 PRAPARE - Transportation Answer Date Re corded In the past 12 months, has l ack of transportation kept you from medical appointments or from getting medications? No 11/21 In the past 12 months, has l ack of transportation kept you from meetings, work, or from getting things needed for daily living? No 12/19/2023 Housing Stability Vital Sign Answer Leon e Recorded In the last 12 months, was t here a time when you were not able to pay the mortgage or rent on time? No 12/19/2023 In the last 12 months, how many places have you lived? 2 12/19/2023 In the last 12 months, was t here a time when you did not have a steady place to sleep or slept in a long-term (including now)? No 12/19/2023 Education Answer Date Recorded What is the highest level of school you have completed or the highest degree you have received? Some college, no degree 07/20/2022 Sexually Active Control Partners Comments Yes Male Comments No Sex and Gender Information Value Date Recorded Sex Assigned at Not on file Legal Sex Female 7:44 PM CDT Gender Identity Not on file Sexual Orientation Not on file documented as of this encounter Miscellaneous Notes * Telephone Encounter - Annette Donahue RN - 02/02/2024 10:37 AM CDT Medication(s) refilled and signed per [facility] Chronic Medication Refill Standing Order for Pediatricand Adult Patients. Requested Prescriptions Pending Prescriptions Disp Refills levothyroxine (SYNTHROID) 100 MCG Tablet 90 Tablet 3 Sig: Take 1 Tablet by mouth daily. Thyroid Hormones Protocol Passed - 02/02/2024 2:14 AM Passed - Visit with relevant provider in past 12 months or upcoming 90 days Recent Visits Date Type Provider Dept 01/23/24 Office Visit Aster Preston, DO [facility] [place] 01/09/24 Office Visit Aster Preston, DO [facility] 12/19/23 Office Visit Aster Preston, DO [facility] [place] 12/11/23 Office Visit Edgar Stock APRN, [facility] [place] 06/02/23 Office Visit Melissa Tenorio APRN, [facility] [place] 05/24/23 Office Visit [facility] Show[facility] recent visits within past 365 days and meeting all other requirements Future Appointments Date Type Provider Dept 04/26/24 Appointment Aster Preston DO [facility] [place] Showing future appointments within next 90 days and meeting all other requirements Passed - Normal TSH in past 12 months TSH Date Value Ref Range Status 01/09/2024 0.873 0.300 - 5.000 mIU/L Final documented in this encounter Plan of Treatment Upcoming Encounters Date Type Department Care Team (Late st Contact Info) Description 02/13/2025 9:20 AM CDT Office Visit [facility] - Family Medicine - [place] [address] [place] [address] Aster Preston DO 2 [facility] [address] [place] [address] documented as of this encounter Visit Diagnoses Not on filedocumented in this encounter Additional Health Concerns Assessment Noted Time PHQ-9 Depression Total Score: 0 06/02/20 23 9:41 AM CDT documented as of this encounter Care Teams Through Operator Relationship Specialty Start Date End Date Aster Preston DO 2 [facility] [place] [facility] [address] [place] [address] PCP - General Family Medicine 12/19/23 documented as of this encounter
--- OUTSIDE RECORDS SUMMARY | 2025-01-03 13:04 | XMS_ITS | Encounter Summary ---
Author Organization [facility] Address [address] [place] [address] Phone Care Team Providers Care Concrete Pipe Machine Operator Name Role Phone Daiv Hoover MD Primary Care Provider [phone] Melissa Tenorio APRN, CNP Primary Care Provid er Aster Preston DO Primary Care Provider [phone] Reason for Visit * Reason Comments Medication Refill Encounter Details Date Type Department Care Team (Late Contact Info) Description 12/02/2020 Refill [facility] [address] [place], [place] [id number] Davi Hoover MD [address] [address] Medication Refill Social History Tobacco Use Types Packs/Day Years Used Date Smoking Tobacco: Never Smokeless Tobacco: Never Alcohol Use Standard Drinks/Week Comments Yes 2 (1 standard drink = 0.6 oz pur e alcohol) PHQ-2 Answer Date Recorded Total Score - Questions 1-9 0 0 11/2019 Sexually Active Control Partners Comments Never Comments No Sex and Gender Information Value Date Recorded Sex Assigned at Not on file Legal Sex Female 7:44 PM CDT Gender Identity Not on file Sexual Orientation Not on file COVID-19 Exposure Response Date Recorded In the last month, have you been in contact with someone who was confirmed or suspected to have Coronavirus / COVID-19? No / Unsure 12/02/2020 12:51 PM CDT documented as of this encounter Miscellaneous Notes * Telephone Encounter - Davi Hoover MD - 12/03/2020 9:09 AM CDT Prescription approved. Please call in * Telephone Encounter - Annette Donahue RN - 12/03/2020 8:58 AM CDT Medication failed the protocol, provider to review and approve the medication order if appropriate. Requested Prescriptions Pending Prescriptions Disp Refills Synthroid 100 MCG Tablet [Pharmacy Med Name: SYNTHROID TABS 100MCG] 90 Tablet 3 Sig: TAKE 1 TABLET DAILY Endocrinology: Hypothyroid Agents Failed - 12/02/2020 8:03 AM Failed - TSH in normal range and within 360 days TSH Date Value Ref Range Status 01/23/2020 4.530 (H) 0.270 - 4.200 mIU/L Final Passed - Valid encounter within last 12 months Past Office Visits Recent Outpatient Visits 8 months ago Hypothyroidism, unspecified type [facility] [place] - Davi Fan MD 1 year ago Hypothyroidism, unspecified type [facility] Davi Albarran MD 1 year ago Poison diogenes dermatitis [facility] Melissa Hearn APN, AUGER SUPERVISOR 1 year ago Essential hypertension [facility] Davi Fan MD 2 years ago Current moderate episode of major depressive disorder without prior episode (HCC) [facility] Davi Fan MD Upcoming Appointments Future Appointments In 2 weeks Lab, [facility], [facility] In 4 weeks Davi Hoover MD [facility] [place] LONNIE Austin PROPELLER INSPECTOR - Recent and Past Visits Recent Visits Date Type Provider Dept 03/24/20 Office Visit Davi Hoover MD [facility] Showing recent visits within past 460 days with a meds authorizing provider and meeting all other requirements Future Appointments Date Type Provider Dept 12/31/20 Appointment Davi Hoover MD [facility] Showing future appointments within next 90 days with a meds authorizing provider and meeting all other requirements documented in this encounter Plan of Treatment Upcoming Encounters Date Type Department Care Team (Late st Contact Info) Description 02/13/2025 9:20 AM CDT Office Visit [facility] - Family Medicine [facility] [address] [place] [address] Aster Preston DO [address] [address] documented as of this encounter Visit Diagnoses Not on filedocumented in this encounter Additional Health Concerns Assessment Noted Time PHQ-9 Depression Total Score: 0 03/24/20 20 1:51 PM CDT documented as of this encounter Care Teams Concrete Pipe Machine Operator Relationship Specialty Start Date End Date Davi Hoover MD [address] [facility] [place] [address] PCP - General Family Medicine 07/13/15 06/07/21 Melissa Tenorio APRN, AUGER SUPERVISOR [address] [place] [address] PCP - General Advanced Practice Nurse 06/08/21 Aster Preston DO [address] [facility] [place] [address] PCP - General Family Medicine 12/19/23 documented as of this encounter
--- OUTSIDE RECORDS SUMMARY | 2025-01-03 13:04 | XMS_ITS | Referral Summary ---
Author Organization [facility] Medical Office Building [facility] Address [address] [place] [address] Care Team Providers Care Hospital Staff Pharmacist Name Role Phone Aster Preston DO Primary Care Provider [phone] Allergies No known active allergies Medications losartan (COZAAR) 100 mg tablet take 1 tablet by oral route every day 0 0 6 Active levothyroxine sodium (TIROSINT) 100 mcg capsule take 1 capsule by oral route every day 0 0 6 Active ibuprofen (ADVIL,MOTRIN) 800 mg tablet take 1 tablet by oral route 3 times every day with food 0 0 6 Active Additional Information Patient not taking.Reported on 04/05/2024 escitalopram (LEXAPRO) 10 mg tablet Take 1 tablet (10 mg total) by mouth daily Active busPIRone (BUSPAR) 5 mg tabletIndicatio ns:Generalized Anxiety Disorder Take 1 tablet (5 mg total) by mouth 3 (three) times a day Active omeprazole (PriLOSEC) 20 mg capsule Take 1 capsule (20 mg total) by mouth daily Active zinc 50 mg tablet Take 1 tablet by mouth daily Active vitamin B complex capsule Take 1 capsule by mouth daily Active ascorbic acid (ascorbic acid with lizet hips) 500 mg tablet,chewable 1 tablet/chew tab (500 mg total) daily Active cholecalciferol (VITAMIN D-3) 400 unit capsule Active echinacea purpurea extract 125 mg tablet Take by mouth Active ALPRAZolam (XANAX) 0.5 mg tablet TAKE 1 TABLET THREE TIMES A DAY NEEDED FOR ANXIETY 3 Active dupilumab (Dupixent Syringe) 100 mg/0.67 mL syringe Inject under the skin Active hydrOXYzine (ATARAX) 25 mg tablet Take 1 tablet (25 mg total) by mouth every 6 (six) hours as needed 4 Active mupirocin (BACTROBAN) 2 % ointmentIndicat ions:Abscess of left lower leg Apply topically 2 (two) times a day 22 g 4 Active Active Problems Problem Noted Date Diagnosed Date Cholelithiasis 04/05/2024 Overview (04/05/2024): x2 Low vitamin D level 04/05/2024 Osteoporosis 04/05/2024 Atherosclerosis of aorta 10/30/2023 Onychomycosis of toenail 10/30/2023 Prurigo nodularis 10/30/2023 Increased frequency of urination 10/31/2022 Lichen simplex chronicus 10/31/2022 Encounter for screening colonoscopy 03/10/2021 Overview (03/10/2021): Added automatically from request for surgery [id number] History of colonic polyps 03/10/2021 Overview (03/10/2021): Added automatically from request for surgery [id number] Kidney stone 10/02/2020 Eczema 08/26/2020 Hypertension 08/26/2020 Hypothyroid 08/26/2020 Current moderate episode of major depressive disorder without prior episode 01/01/2019 Gastroesophageal reflux disease without esophagi tis 06/25/2018 Hyperglycemia 12/14/2017 Primary osteoarthritis of right knee 02/26/2017 Rhus dermatitis 02/22/2017 Depression 05/24/2016 Anxiety 11/03/2015 Social History Tobacco Use Types Packs/Day Years Used Date Smoking Tobacco: Former Cigarettes Q uit: 1971 Smokeless Tobacco: Never AUDIT-C Answer Date Recorded Q1: How often do you have a drink containing alc ohol? 2-4 times a month 07/28/2021 Average Number of Drinks Not on file 021 Q3: How often do you have si x or more drinks on one occasion? Monthly 07/28/2021 Comments Unknown Sex and Gender Information Value Date Recorded Sex Assigned at Not on file Legal Sex Female 9:13 AM LENGTH CONTROL TESTER Gender Identity Not on file Sexual Orientation Not on file Last Filed Vital Signs Vital Sign Reading Time Taken Comments Blood Pressure 116/54 04/05/2024 2:11 PM CDT Pulse 74 04/05/2024 2:11 PM CDT Temperature 36.9 C (98.5 F) 04/05/2024 2:11 PM CDT Respiratory Rate 20 04/05/2024 2:11 PM CDT Oxygen Saturation 95% 04/05/2024 2:11 PM CDT Inhaled Oxygen Concentration - - Weight 77.1 kg (170 lb) 04/05/2024 2:11 PM CDT Height 157.5 cm (5' 2 ) 04/05/2024 2:11 PM CDT Body Mass Index 31.09 04/05/2024 2:11 PM CDT Plan of Treatment Not on file Procedures Procedure Name Priority Date/Time Associated Diagnosis Comments COLONOSCOPY 07/28/2021 8:49 AM LENGTH CONTROL TESTER from Last 3 Months or Most Recently Relevant to Health Maintenance Results * COLONOSCOPY (07/28/2021 8:49 AM LENGTH CONTROL TESTER) Anatomical Region Laterality Modality Other Narrative Procedure Note Arcadio Gonzalez MD - 07/28/2021 8:49 AM CST [facility] Patient Name: Bre Meza Procedure Date: 07/28/2021 8:49 AM Date of : 1945 Admit Type: Outpatient Age: 75 Gender: Female Attending MD: Arcadio Gonzalez M.D. Room: [facility] ENDOSCOPY ROOM 1 Note Status: Finalized Patient Profile: This is a 75 year old female. No family history of colon cancer. Procedure: Colonoscopy Indications: Screening for colorectal malignant neoplasm, Last colonoscopy 10 years ago Referring MD: Davi Hoover M.D. Providers: Arcadio Gonzalez M.D. Impression: - The entire examined colon is normal. - Internal and external hemorrhoids. - No specimens collected. Recommendation: - Repeat colonoscopy in 10 years for screening purposes. - Continue present medications. Medicines: Monitored Anesthesia Care Complications: No immediate complications. Estimated Blood Loss: Estimated blood loss: none. Procedure: Pre-Anesthesia Assessment: - Prior to the procedure, a History and Physicalwas performed, and patient medications and allergieswere reviewed. The patient's tolerance of previous anesthesia was also reviewed. The risks andbenefits of the procedure and the sedation options and risks were discussed with the patient. All questions were answered, and informed consent was obtained. Prior Anticoagulants: The patient has taken no previous anticoagulant or antiplatelet agents. ASA Grade Assessment: II - A patient with mild systemicdisease. After reviewing the risks and benefits, the patient was deemed in satisfactory condition to undergo the procedure. The benefits, risks and alternatives of theprocedure and sedation were discussed and informed consentwas obtained. All questions were answered. Please referto the signed informed consent document in the medical record. The scope was passed under direct vision.The Pediatric Colonoscope PCF-H190L [id number] was introduced through the anus and advanced to the the cecum, identified by appendiceal orifice andileocecal valve. The bowel preparation used was Miralax and bisacodyl tablets via split dose instruction. The quality of the bowel preparation was excellent.Bowel prep was administered using a split dose. Findings: Small external hemorrhoids were found on perianal exam. The cecum appeared normal. The colon (entire examined portion) appeared normal. No polyps and no mass lesions noted Internal hemorrhoids were found during retroflexion. The hemorrhoids were small. Electronically signed by Arcadio Gonzalez M.D. Arcadio Gonzalez M.D. 07/28/2021 9:36:20 AM Number of Addenda: 0 Note Initiated On: 07/28/2021 8:49 AM Procedure Code(s): --- Professional --- G0121, Colorectal cancer screening; colonoscopy on individual not meeting criteria for high risk Diagnosis Code(s): --- Professional --- Z12.11, Encounter for screening for malignant neoplasm of colon K64.8, Other hemorrhoids CPT copyright 2019 [employer]. All rights reserved. The codes documented in this report are preliminary and upon manager investment banking reviewmay be revised to meet current compliance requirements. Recognized by the [employer] for promoting quality in endoscopy Arcadio Gonzalez MD ENDOSCOPY PROCEDURES Final Result from Last 3 Months or Most Recently Relevant to Health Maintenance Insurance MEDICARE FOR LIFE FOR LIFE MEDICARE MEDICARE FOR LIFE Advance Directives For more information, please contact: [phone] * Full Code (Latest Code Status on File) Date Activated Date Inactivated Comments 07/28/2021 8:03 AM 07/28/2021 2:19 PM * Full Code Date Activated Date Inactivated Comments 07/28/2021 8:02 AM 07/28/2021 8:02 AM Care Teams Hospital Staff Pharmacist Relationship Specialty Start Date End Date Aster Preston DO [address] [place] [address] PCP - General Family Medicine 04/05/24
--- OUTSIDE RECORDS SUMMARY | 2025-01-03 13:04 | XMS_ITS | Encounter Summary ---
Author Organization [facility] Address [address] [place] [address] Phone Care Team Providers Care Cyanide Pot Tender Name Role Phone Melissa Tenorio APRN, CNP Primary Care Provid er Aster Preston DO Primary Care Provider [phone] Reason for Visit * Reason Comments Medication Refill Encounter Details Date Type Department Care Team (Late st Contact Info) Description 02/21/2022 Refill [facility] - Family Medicine [facility] [address] [place] [address] Davi Hoover MD [address] [address] Medication Refill Social History Tobacco Use Types Packs/Day Years Used Date Smoking Tobacco: Never Smokeless Tobacco: Never Alcohol Use Standard Drinks/Week Comments Yes 2 (1 standard drink = 0.6 oz pur e alcohol) PHQ-2 Answer Date Recorded Total Score - Questions 1-9 0 12/19 Sexually Active Control Partners Comments Never Comments No Sex and Gender Information Value Date Recorded Sex Assigned at Not on file Legal Sex Female 7:44 PM CDT Gender Identity Not on file Sexual Orientation Not on file COVID-19 Exposure Response Date Recorded In the last 10 days, have yo u been in contact with someone who was confirmed or suspected to have Coronavirus/COVID-19? No / Unsure 01/25/2022 7:37 AM CDT documented as of this encounter Miscellaneous Notes * Telephone Encounter - Annette Donahue RN - 02/22/2022 1:59 PM CDT Medication failed the protocol, provider to review and approve the medication order if appropriate. Requested Prescriptions Pending Prescriptions Disp Refills escitalopram (LEXAPRO) 10 MG Tablet [Pharmacy Med Name: ESCITALOPRAM TABS 10MG] 90 Tablet 3 Sig: TAKE 1 TABLET DAILY SSRI (6 Month Refill Only) Protocol Failed - 02/21/2022 2:57 AM Failed - Has an encounter in the past 6 months with a depression, anxiety, adjustment disorder, OCD, or PTSD visit diagnosis Passed - Visit with relevant provider in past 6 months or upcoming 90 days Recent Visits Date Type Provider Dept 01/04/22 Office Visit Melissa Tenorio APRN, CNP [facility] Showing recent visits within past 182 days and meeting all other requirements Future Appointments No visits were found meeting these conditions. Showing future appointments within next 90 days and meeting all other requirements Passed - Patient has established therapy with SSRI for at least 6 months documented in this encounter Plan of Treatment Upcoming Encounters Date Type Department Care Team (Late st Contact Info) Description 02/13/2025 9:20 AM CDT [facility] - [facility] - [place] [address] [place] [address] Aster Preston, DO 2 [facility]. [address] [place] [address] documented as of this encounter Visit Diagnoses Not on filedocumented in this encounter Additional Health Concerns Assessment Noted Time PHQ-9 Depression Total Score: 0 01/05/20 10:12 AM CDT documented as of this encounter Care Teams Cyanide Pot Tender Relationship Specialty Start Date End Date Melissa Tenorio APRN, HUEY [address] [address] PCP - General Advanced Practice Nurse 06/08/21 Aster Preston DO [address] [address] PCP - General Family Medicine 12/19/23 documented as of this encounter
--- OUTSIDE RECORDS SUMMARY | 2025-01-03 13:04 | XMS_ITS | Encounter Summary ---
Author Organization [facility] Address [address] [place] [address] Phone Care Team Providers Care Gas Controller Name Role Phone Melissa Tenorio APRN, CNP Primary Care Provid er Aster Preston DO Primary Care Provider [phone] Reason for Visit * Reason Comments Medication Refill Encounter Details Date Type Department Care Team (Late st Contact Info) Description 11/23/2022 Refill [facility] - Family Medicine [facility] [address] [place] [address] Radha Alston PAC [address] [place] [address] Medication Refill Social History Tobacco Use Types Packs/Day Years Used Date Smoking Tobacco: Never Smokeless Tobacco: Never Alcohol Use Standard Drinks/Week Comments Yes 2 (1 standard drink = 0.6 oz pur e alcohol) PHQ-2 Answer Date Recorded Total Score - Questions 1-9 0 12/19 Education Answer Date Recorded What is the highest level of school you have completed or the highest degree you have received? Some college, no degree 07/20/2022 Sexually Active Control Partners Comments Never Comments No Sex and Gender Information Value Date Recorded Sex Assigned at Not on file Legal Sex Female 7:44 PM CDT Gender Identity Not on file Sexual Orientation Not on file documented as of this encounter Miscellaneous Notes * Telephone Encounter - Melissa Tenorio APRN, CNP - 11/24/2022 11:15 PM CDT [place] DIRECT[place] WORKERS COMPENSATION reviewed approved * Telephone Encounter - Lisset Campbell RN - 11/24/2022 9:39 AM CDT Medication failed the protocol, provider to review and approve the medication order if appropriate. Requested Prescriptions Pending Prescriptions Disp Refills ALPRAZolam (XANAX) 0.5 MG Tablet [Pharmacy Med Name: ALPRAZOLAM TABS 0.5MG] 30 Tablet 0 Sig: TAKE 1 TABLET THREE TIMES A DAY NEEDED FOR ANXIETY Not Delegated - Benzodiazepines Protocol Failed - 11/23/2022 3:35 PM Failed - This refill cannot be delegated Passed - Visit with relevant provider in past 12 months or upcoming 90 days Recent Visits Date Type Provider Dept 01/04/22 Office Visit Melissa Tenorio APRN, CNP [facility] Showing recent visits within past 365 days and meeting all other requirements Future Appointments No visits were found meeting these conditions. Showing future appointments within next 90 days and meeting all other requirements documented in this encounter Plan of Treatment Upcoming Encounters Date Type Department Care Team (Late st Contact Info) Description 02/13/2025 9:20 AM CDT [facility] Visit [facility] - [facility] Medicine - [place] [address] [place] [address] Aster Preston, DO 2 [facility] [address] [place] [address] documented as of this encounter Visit Diagnoses Diagnosis Anxiety with flying documented in this encounter Additional Health Concerns Assessment Noted Time PHQ-9 Depression Total Score: 0 01/05/20 10:12 AM CDT documented as of this encounter Care Teams Gas Controller Relationship Specialty Start Date End Date Melissa Tenorio APRN, MRI CT TECH [address] [address] PCP - General Advanced Practice Nurse 06/08/21 Aster Preston DO [address] [address] PCP - General Family Medicine 12/19/23 documented as of this encounter
--- OUTSIDE RECORDS SUMMARY | 2025-01-03 13:04 | XMS_ITS | Encounter Summary ---
Author Organization [facility] Address [address] [facility] [place] [address] Care Team Providers Care Registered Nurses Name Role Phone Davi Hoover MD Primary Care Provider [phone] Aster Preston DO Primary Care Provider [phone] Encounter Details Date Type Department Care Team (Late st Contact Info) Description 05/08/2019 Lab Requisition [facility] [address] [place] [address] Mina Canales MD [address] [place] [address] Social History Tobacco Use Types Packs/Day Years [...] Priority Date/Time Associated Diagnosis Comments DERMATOPATHOLOGY Routine 05/07/2019 12:0 0 AM CDT documented in this encounter Results * DERMATOPATHOLOGY (05/07/2019 12:00 AM CDT) Case Report Dermatopathology Report Case: [id number] Authorizing Provider: Mina Canales MD Collected: 05/07/2019 12:00 AM Ordering Location: [facility] Received: 05/08/2019 01:45 PM Pathologist: Lupe Vogt MD Specimens: A) - Skin, right mid lateral back B) - Skin, midline suprapubic skin 4:57 PM T DERMATOPATHOLOGY LABORATORY Final Diagnosis Specimen A. 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 SKIN, midline suprapubic skin: COMPOUND NEVUS WITH CONGENITAL FEATURES (D22.5) 4:57 PM T DERMATOPATHOLOGY LABORATORY Clinical History A: R/O SCC SCCIS B: R/O Dys nevus 4:57 PM T DERMATOPATHOLOGY LABORATORY Gross Description Specimen A: Received is one formalin filled container labeled with the patient's name and designated right mid lateral back. The specimen consists of a shave biopsy measuring 11x8x5 mm, bisected. Jar 0+. Specimen B: Received is one formalin filled container labeled with the patient's name and designated midline suprapubic skin. The specimen consists of a shave biopsy measuring 37w27k5 mm. Jar 0. 4:57 PM [facility] DERMATOPATHOLOGY [facility]ORATORY Microscopic Description Specimen A. SKIN, right mid lateral back: The epidermis is acanthotic and shows full thickness disorderly maturation of keratinocytes, mitoses at different levels, and dyskeratotic cells. There is overlying parakeratosis and hyperkeratosis. Specimen B. SKIN, midline suprapubic skin: There are nests of melanocytes at the dermal-epidermal junction and within the dermis. Some melanocytes are splayed between collagen bundles and are localized around adnexal structures. 4:57 PM [facility] DERMATOPATHOLOGY [facility]ORATORY Disclaimer An external and internal positive and negative controls are appropriate for the histochemical, immunohistochemical and immunofluorescence stain(s) in this case (if any), except where stated explicitly. The performance characteristics of the stain(s) cited in this report were developed and its performance characteristic determined by the Dermatopathology Laboratory at [facility], directed by Dr. Doretha Vogt. These tests need not be, and therefore are not, approved by the [place] Food and Drug Administration. The tests are used for clinical purposes. Billing Codes Specimen Charges Stain Charges 81386 [id number] 1 1 4:57 PM T DERMATOPATHOLOGY LABORATORY Embedded Images 9 4:57 PM CDT DERMATOPATHOLOGY LABORATORY Pathology/Cytology TISSUE SPECIMEN FROM SKIN / Unknown 05/07/2019 05/08/2019 1:45 PM CDT Miscellaneous samples (specimen) TISSUE SPECIMEN FROM SKIN / Unknown 05/07/2019 05/08/2019 1:45 PM CDT Mina Canales MD LAB - PATHOLOGY/CYTOLOGY ORD ERABLES Final Result DERMATOPATHOLOGY LABORATORY [facility] - Department of Dermatology [address] [place] [address], [address] Floor Lab [address] [phone] documented in this encounter Visit Diagnoses Not on filedocumented in this encounter Care Teams Registered Nurses Relationship Specialty Start Date End Date Davi Hoover MD PCP - General Family Medicine 05/16/14 07/07/24 Aster Preston DO [address] [place] [address] PCP - General Family Medicine 07/08/24 documented as of this encounter
--- OUTSIDE RECORDS SUMMARY | 2025-01-03 13:04 | XMS_ITS | Encounter Summary ---
Author Organization [facility] Address [address] [place] [address] Care Team Providers Care Bead Wrapper Name Role Phone Davi Hoover MD Primary Care Provider [phone] Aster Preston DO Primary Care Provider [phone] Encounter Details Date Type Department Care Team (Late st Contact Info) Description 05/30/2019 Lab Requisition [facility] [address] [place] [address] Mina Canales MD [address] [place] [address] Social History Tobacco Use Types Packs/Day Years [...] Priority Date/Time Associated Diagnosis Comments DERMATOPATHOLOGY Routine 05/29/2019 12:0 0 AM CDT documented in this encounter Results * DERMATOPATHOLOGY (05/29/2019 12:00 AM CDT) Case Report Dermatopathology Report Case: [id number] Authorizing Provider: Mina Canales MD Collected: 05/29/2019 12:00 AM Ordering Location: [facility] Received: 05/30/2019 12:39 PM Pathologist: Lupe Vogt MD Specimen: Skin, right mid lateral back 9 3:53 PM CDT DERMATOPATHOLOGY LABORATORY Final Diagnosis Specimen A. 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 Previous Bx: [id number]. Check margins. 3:53 PM T DERMATOPATHOLOGY LABORATORY Gross Description Specimen A: Received is one formalin filled container labeled with the patient's name and designated right mid lateral back.The specimen consists of an ellipse measuring [id number] and is oriented with the notch at the 12 o'clock position labeled on the requisition as medial pole. The epidermal surface consists of a centrally located 9x9mm previous biopsy site. The 12 to 6 o'clock margin is inked green. The 6 o'clock to 12 o'clock margin is inked black. The 12 o'clock tip is submitted in cassette 1. The 6 o'clock tip is submitted in cassette 2. The remainder of the ellipse is serially sectioned and submitted in cassettes 3-4. Jar 0. 3:53 PM [facility] DERMATOPATHOLOGY LABORATORY Microscopic Description Specimen A. SKIN, right mid lateral back: There are fibroblasts and collagen bundles oriented parallel to the skin surface. There are elongated blood vessels, some of which are oriented perpendicular to the skin surface. No residual squamous cell carcinoma is identified. 3:53 PM T DERMATOPATHOLOGY LABORATORY Disclaimer An external and internal positive and negative controls are appropriate for the histochemical, immunohistochemical and immunofluorescence stain(s) in this case (if any), except where stated explicitly. The performance characteristics of the stain(s) cited in this report were developed and its performance characteristic determined by the Dermatopathology Laboratory at [facility], directed by Dr. Doretha Vogt. These tests need not be, and therefore are not, approved by the [place] Food and Drug Administration. The tests are used for clinical purposes. Billing Codes Specimen Charges Stain Charges 72379 1 3:53 PM CDT DERMATOPATHOLOGY LABORATORY Embedded Images 3:53 PM T DERMATOPATHOLOGY LABORATORY Pathology/Cytolog y TISSUE SPECIMEN FROM SKIN / Unknown 05/29/2019 05/30/2019 12:39 PM CDT Mina Canales MD LAB - PATHOLOGY/CYTOLOGY ORD ERABLES Final Result DERMATOPATHOLOGY LABORATORY [facility] - Department of Dermatology [address] [place] [address], 5th Floor Lab [address] [phone] documented in this encounter Visit Diagnoses Not on filedocumented in this encounter Care Teams Bead Wrapper Relationship Specialty Start Date End Date Davi Hoover MD PCP - General Family Medicine 05/16/14 07/07/24 Aster Preston DO [address] [place] [phone] PCP - General Family Medicine 07/08/24 documented as of this encounter
--- OUTSIDE RECORDS SUMMARY | 2025-01-03 13:04 | XMS_ITS | Encounter Summary ---
Author Organization [facility] Address [address] [place] [address] Phone Care Team Providers Care Director Systems Name Role Phone Melissa Tenorio APRN, CNP Primary Care Provid er Aster Preston DO Primary Care Provider [phone] Reason for Visit * Reason Comments Medication Refill Encounter Details Date Type Department Care Team (Late st Contact Info) Description 02/06/2023 Refill [facility] - Family [facility] [address] [place] [address] Melissa Tenorio APRN, CNP [address] [address] Medication Refill Social History Tobacco Use Types Packs/Day Years Used Date Smoking Tobacco: Never Smokeless Tobacco: Never Alcohol Use Standard Drinks/Week Comments Yes 2 (1 standard drink = 0.6 oz pur e alcohol) PHQ-2 Answer Date Recorded Total Score - Questions 1-9 0 11/19 Education Answer Date Recorded What is the [...] suspected to have Coronavirus/COVID-19? No / Unsure 01/30/2023 8:39 AM CDT documented as of this encounter Miscellaneous Notes * Telephone Encounter - Tiffany Raphael RN - 02/06/2023 11:25 AM CDT PDMP 11/24/22 90 day supply Medication failed the protocol, provider to review and approve the medication order if appropriate. Requested Prescriptions Pending Prescriptions Disp Refills levothyroxine (SYNTHROID) 100 MCG Tablet [Pharmacy Med Name: L-THYROXINE TABS 100MCG] 90 Tablet 3 Sig: TAKE 1 TABLET DAILY Thyroid Hormones Protocol Failed - 02/06/2023 2:18 AM Failed - Normal TSH in past 12 months TSH Date Value Ref Range Status 01/25/2022 2.780 0.270 - 4.200 mIU/L Final Passed - Visit with relevant provider in past 12 months or upcoming 90 days Recent Visits Date Type Provider Dept 12/01/22 Office Visit Melissa Tenorio APRN, ASSISTANT MANAGER BILINGUAL [facility] Showing recent visits within past 365 days [...] Group - Family Medicine - [place] [address] [place] [phone] Aster Preston, [address] [place] [address] documented as of this encounter Visit Diagnoses Not on filedocumented in this encounter Additional Health Concerns Assessment Noted Time PHQ-9 Depression Total Score: 0 12/02/19 1:00 PM CDT documented as of this encounter Care Teams Director Systems Relationship Specialty Start Date End Date Melissa Tenorio APRN, ASSISTANT MANAGER BILINGUAL [address] [phone] PCP - General Advanced Practice Nurse 06/08/21 Aster Preston DO 2 [facility] [address] [address] PCP - General Family Medicine 12/19/23 documented as of this encounter
--- OUTSIDE RECORDS SUMMARY | 2025-01-03 13:04 | XMS_ITS | Encounter Summary ---
Author Organization [facility] Address [address] [place] [address] Phone Care Team Providers Care Liquefied Natural Gas Plant Operator Name Role Phone Davi Hoover MD Primary Care Provider [phone] Melissa Tenorio APRN, CNP Primary Care Provid er Aster Preston DO Primary Care Provider [phone] Reason for Visit * Reason Comments Medication Refill Encounter Details Date Type Department Care Team (Late Contact Info) Description 05/06/2020 Refill [facility] [address] [place], [place] [phone] Davi Hoover MD [address] [address] Medication Refill Social History Tobacco Use Types [...] have Coronavirus / COVID-19? No / Unsure 04/28/2020 8:44 AM CDT documented as of this encounter Miscellaneous Notes * Telephone Encounter - Davi Hoover MD - 05/07/2020 9:10 AM CDT Prescription approved. Please call in * Telephone Encounter - Josephine Goetz RN - 05/07/2020 8:29 AM CDT Medication failed the protocol, provider to review and approve the medication order. Pending orderssay TSH expected due to on 09/22/2020. Requested Prescriptions Pending Prescriptions Disp Refills levothyroxine (SYNTHROID) 100 MCG Tablet [Pharmacy Med Name: L-THYROXINE TABS 100MCG] 90 Tab 1 Sig: TAKE 1 TABLET DAILY Endocrinology: Hypothyroid Agents Failed - 05/06/2020 10:01 AM Failed - TSH in normal range and within 360 days TSH Date Value Ref Range Status 01/23/2020 4.530 (H) 0.270 - 4.200 mIU/L Final Passed - Valid encounter within last 12 months Past Office Visits Recent Outpatient Visits 1 month ago Hypothyroidism, unspecified type [facility] Davi Hoover MD 10 months ago Hypothyroidism, unspecified type [facility] Davi Humphries MD 1 year ago Poison diogenes dermatitis [facility] Melissa Tenorio APN, COCOA PRESS OPERATOR 1 year ago Essential hypertension [facility] Davi Hoover MD 1 year ago Current moderate episode of major depressive disorder without prior episode (HCC) [facility] Davi Humphries MD Upcoming Appointments Future Appointments In 6 months Lab, Sapg [facility], [facility] In 6 months Davi Hoover MD [facility], [facility] EXCHANGE ENGINEER - Recent and Past Visits Recent Visits Date Type Provider Dept 03/24/20 Office Visit Davi Hoover MD [facility] [place] 07/04/19 Office Visit Davi Hoover MD [facility] Showing recent visits within past 460 days [...] Description 02/13/2025 9:20 AM CDT Office Visit [facility] - Family Medicine - [place] [address] [place] [address] Aster Preston DO [address] [address] documented as of this encounter Visit Diagnoses Not on filedocumented in this encounter Additional Health Concerns Assessment Noted Time PHQ-9 Depression Total Score: 0 03/24/20 20 1:51 PM CDT documented as of this encounter Care Teams Liquefied Natural Gas Plant Operator Relationship Specialty Start Date End Date Davi Hoover MD [address] [address] PCP - General Family Medicine 07/13/15 06/07/21 Melissa Tenorio APRN, COCOA PRESS OPERATOR [address] [phone] PCP - General Advanced Practice Nurse 06/08/21 Aster Preston DO 2 [facility] [address] [place] [address] PCP - General Family Medicine 12/19/23 documented as of this encounter
--- OUTSIDE RECORDS SUMMARY | 2025-01-03 13:04 | XMS_ITS | Clinical Summary ---
Author Organization [facility] Building [facility] Address [address] [place] [address] Care Team Providers Care Materials Scientist Name Role Phone Aster Preston DO Primary Care Provider Allergies No known active allergies Medications losartan [...] (03/10/2021): Added automatically from request for surgery [id number] History of colonic polyps 03/10/2021 Overview (03/10/2021): Added automatically from request for surgery [id number] Kidney stone 10/02/2020 Eczema 08/26/2020 Hypertension 08/26/2020 Hypothyroid 08/26/2020 Current moderate episode of major depressive disorder without prior episode 01/01/2019 Gastroesophageal reflux disease without esophagi tis 06/25/2018 Hyperglycemia 12/14/2017 Primary osteoarthritis of right knee 02/26/2017 Rhus dermatitis 02/22/2017 Depression 05/24/2016 Anxiety 11/03/2015 Surgical History Surgery Date Site/Laterality Comments CHOLECYSTECTOMY Cholecystectomy COLONOSCOPY 10 yrs ago at [facility] LITHOTRIPSY 08/21/2019 - 08/20/2020 in [place] Medical History Medical History Date Comments Hypertension Hypertension Disorder of thyroid Thyroid dise ase Hx Other Medical Kidney Stones Colon polyp GERD (gastroesophageal reflux disease) Hypothyroidism Kidney stone Depression Family History Medical History Relation Name Comments Heart disease Other 1 Family history of Heart Problems; Hypertension Other 2 Family history of Hypertension; Relation Name Status Comments Other 1 Other 2 Social History Tobacco Use Types Packs/Day Years [...] on file Legal Sex Female 9:13 AM PLANT HEALTH MANAGER Gender Identity Not on file Sexual Orientation Not on file Obstetrics History Last Filed Vital Signs Vital Sign Reading [...] 04/05/2024 2:11 PM CDT Plan of Treatment Health Maintenance Due Date Last Done Comments Depression Screening 1945 Fall Risk Assessment 1945 Hepatitis C Screening 1945 Hepatitis B Screening 1964 Well Visit 65+ 10/23/2011 DTaP/Tdap/Td Vaccine (2 - Td or Tdap) 04/21/2018 04/21/2008 Covid-19 Vaccine (3 - 2023-2 5 season) 2024 11/27/2020, 11/23/2020 Influenza Vaccine (#1) 2024 , 05/21/2022, 04/28/2021, Additional history exists Osteoporosis Screening-Bone Density Scan 01/30/2025 01/30/2023, 01/30/2023 Colon Cancer Screening-Colonoscopy Discontinued 07/28/2021 Breast Cancer Screening-Mammogram Discontinued 05/24/2023, 05/24/2023, 04/12/2022, Additional history exists Pneumococcal vaccine 65+ Completed 024, 11/03/2015, 08/21/2012, Additional history exists Zoster Vaccine Completed 11/21/2023, 08/23, 08/21/2011 Procedures Procedure Name Priority Date/Time Associated Diagnosis Comments COLONOSCOPY 07/28/2021 8:49 AM PLANT HEALTH MANAGER from Last 3 Months or Most Recently Relevant to Health Maintenance Results * COLONOSCOPY (07/28/2021 8:49 AM PLANT HEALTH MANAGER) Anatomical Region Laterality Modality Other Narrative Procedure Note Arcadio Gonzalez MD - 07/28/2021 8:49 AM CST [facility] Patient Name: Bre Meza Procedure Date: 07/28/2021 8:49 AM Date of : 1945 Admit Type: Outpatient Age: 75 Gender: Female Attending MD: Arcadio Gonzalez M.D. Room: [facility] ENDOSCOPY ROOM 1 Note Status: Finalized Patient [...] passed under direct vision.The Pediatric Colonoscope PCF-H190L [id number] was introduced through the anus and advanced [...] colon K64.8, Other hemorrhoids CPT copyright 2019 [employer]. All rights reserved. The codes documented in this report are preliminary and upon outsole rounder reviewmay be revised to meet current compliance requirements. Recognized by the [employer] for promoting quality in endoscopy Arcadio Gonzalez MD ENDOSCOPY PROCEDURES Final Result from Last 3 Months or Most Recently Relevant to Health Maintenance Insurance MEDICARE [facility] Address: [address] [address] [place] [address] [employer] MEDICARE MEDICARE FOR LIFE Advance Directives For more information, please contact: [phone] * Full Code (Latest Code Status on File) Date Activated Date Inactivated Comments 07/28/2021 8:03 AM 07/28/2021 2:19 PM * Full Code Date Activated Date Inactivated Comments 07/28/2021 8:02 AM 07/28/2021 8:02 AM Care Teams Materials Scientist Relationship Specialty Start Date End Date Aster Preston DO [address] [place] [id number] PCP - General Family Medicine 04/05/24
--- OUTSIDE RECORDS SUMMARY | 2025-01-03 13:04 | XMS_ITS | Encounter Summary ---
Author Organization [facility] Address [address] [place] [address] Care Team Providers Care Baler Operator Name Role Phone Davi Hoover MD Primary Care Provider [phone] Aster Preston DO Primary Care Provider [phone] Encounter Details Date Type Department Care Team (Late st Contact Info) Description 07/15/2020 Lab Requisition [facility] [address] [place] [address] Mina Canales MD [address] [place] [address] Social History Tobacco Use Types Packs/Day Years [...] Priority Date/Time Associated Diagnosis Comments DERMATOPATHOLOGY Routine 07/14/2020 12:0 0 AM BRAIN PICKER documented in this encounter Results * DERMATOPATHOLOGY (07/14/2020 12:00 AM BRAIN PICKER) Case Report Dermatopathology Report Case: [id number] Authorizing Provider: Mina Canales MD Collected: 07/14/2020 12:00 AM Ordering Location: [facility] Received: 07/15/2020 11:14 AM Pathologist: Jen Montero MD Specimen: Skin, left lower anteromeidal de 0 1:41 PM BRAIN PICKER DERMATOPATHOLOGY LABORATORY Final Diagnosis Specimen A. SKIN, left lower anteromeidal de: SQUAMOUS CELL CARCINOMA, KERATOACANTHOMA TYPE (C44.729) 0 1:41 PM [facility] DERMATOPATHOLOGY LABORATORY Clinical History R/O KA 0 1:41 PM BRAIN PICKER DERMATOPATHOLOGY LABORATORY Gross Description Specimen A: Received is one formalin filled container labeled with the patient's name and designated left lower anteromeidal de. The specimen consists of a shave biopsy measuring [id number] mm. Jar 0. 0 1:41 PM [facility] DERMATOPATHOLOGY LABORATORY Microscopic Description Specimen A. SKIN, left lower anteromeidal de: Sections show an endo exophytic crateriform lesion with a keratotic plug, formed by confluent follicle-like structures with relatively large keratinocytes and neutrophilic abscesses. 0 1:41 PM [facility] DERMATOPATHOLOGY LABORATORY Disclaimer An external and internal positive and negative controls are appropriate for the histochemical, immunohistochemical and immunofluorescence stain(s) in this case (if any), except where stated explicitly. The performance characteristics of the stain(s) cited in this report were developed and its performance characteristic determined by the Dermatopathology Laboratory at [facility], directed by Dr. Doretha Vogt. These tests need not be, and therefore are not, approved by the [place] Food and Drug Administration. The tests are used for clinical purposes. Billing Codes Specimen Charges Stain Charges 59638 1 0 1:41 PM [facility] DERMATOPATHOLOGY LABORATORY Embedded Images 0 1:41 PM [facility] DERMATOPATHOLOGY LABORATORY Pathology/Cytolog y TISSUE SPECIMEN FROM SKIN / Unknown 07/14/2020 07/15/2020 11:14 AM BRAIN PICKER us Mina Canales MD LAB - PATHOLOGY/CYTOLOGY ORD ERABLES Final Result DERMATOPATHOLOGY LABORATORY [facility] - Department of Dermatology [address], [address] [phone] documented in this encounter Visit Diagnoses Not on filedocumented in this encounter Care Teams Baler Operator Relationship Specialty Start Date End Date Davi Hoover MD PCP - General Family Medicine 05/16/14 07/07/24 Aster Preston DO [address] [place] [phone] PCP - General Family Medicine 07/08/24 documented as of this encounter
--- OUTSIDE RECORDS SUMMARY | 2025-01-03 13:04 | XMS_ITS | Encounter Summary ---
Author Organization [facility] Address [address] [place] [address] Phone Care Team Providers Care Tool Crib Supervisor Name Role Phone Melissa Tenorio APRN, CNP Primary Care Provid er Aster Preston DO Primary Care Provider [phone] Reason for Visit * Reason Comments Medication Refill Encounter Details Date Type Department Care Team (Late st Contact Info) Description 02/28/2023 Refill [facility] - Family [facility] [address] [place] [address] Melissa Tenorio APRN, CNP [address] [address] Medication Refill Social History Tobacco [...] suspected to have Coronavirus/COVID-19? No / Unsure 02/10/2023 9:44 AM CDT documented as of this encounter Miscellaneous Notes * Telephone Encounter - Melissa Tenorio APRN, CNP - 03/01/2023 2:23 PM CDT [place] [employer] reviewed, approved * Telephone Encounter - Annette Donahue RN - 03/01/2023 9:59 AM CDT PDMP Alprazolam 11/29/22 Medication failed the protocol, provider to review and approve the medication order if appropriate. Requested Prescriptions Pending Prescriptions Disp Refills omeprazole (PriLOSEC) 20 MG CAPSULE DELAYED RELEASE [Pharmacy Med Name: OMEPRAZOLE DR CAPS 20MG] 90Capsule 3 Sig: TAKE 1 CAPSULE DAILY Proton Pump Inhibitors Protocol Passed - 02/28/2023 3:14 PM Passed - Visit with relevant provider in past 12 months or upcoming 90 days Recent Visits Date Type Provider Dept 12/01/22 Office Visit Melissa Tenorio APRN, CNP [facility] Showing recent visits within past 365 days and meeting all other requirements Future Appointments No visits were found meeting these conditions. Showing future appointments within next 90 days and meeting all other requirements ALPRAZolam (XANAX) 0.5 MG Tablet [Pharmacy Med Name: ALPRAZOLAM TABS 0.5MG] 30 Tablet 0 Sig: TAKE 1 TABLET THREE TIMES A DAY NEEDED FOR ANXIETY Not Delegated - Benzodiazepines Protocol Failed - 02/28/2023 3:14 PM Failed - This refill cannot be delegated Passed - Visit with relevant provider in past 12 months or upcoming 90 days Recent Visits Date Type Provider Dept 12/01/22 Office Visit Melissa Tenorio APRN, CNP [facility] Showing recent visits within past 365 days and meeting all other requirements Future Appointments No visits were found meeting these conditions. Showing future appointments within next 90 days and meeting all other requirements documented in this encounter Plan of Treatment Upcoming Encounters Date Type Department Care Team (Late st Contact Info) Description 02/13/2025 9:20 AM CDT Office Visit [facility] [address] [place] [address] Aster Preston DO 2 [facility] [address] [address] documented as of this encounter Visit Diagnoses Diagnosis Anxiety with flying documented in this encounter Additional Health Concerns Assessment Noted Time PHQ-9 Depression Total Score: 0 12/02/19 23 1:00 PM CDT documented as of this encounter Care Teams Tool Crib Supervisor Relationship Specialty Start Date End Date Melissa Tenorio APRN, DIE CAST ENGINEER #[address] [address] PCP - General Advanced Practice Nurse 06/08/21 Aster Preston DO 2 [facility] [address] [address] PCP - General Family Medicine 12/19/23 documented as of this encounter
--- OUTSIDE RECORDS SUMMARY | 2025-01-03 13:05 | XMS_ITS | Encounter Summary ---
Author Organization [facility] Address [address] [address] Phone Care Team Providers Care Medical Psychotherapist Name Role Phone Aster Preston DO Primary Care Provider [phone] Reason for Visit * Reason Onset Date Comments Back Pain 12/19/2024 Encounter Details Date Type Department Care Team (Late st Contact Info) Description 12/19/2024 Nurse Triage [facility] [address] [place] [address] Aster Preston, DO 2 [facility] [address] [place] [address] Back Pain Social History Tobacco Use Types Packs/Day Years Used Date Smoking Tobacco: Never Smokeless Tobacco: Never Alcohol Use Standard Drinks/Week Comments Yes 2 (1 standard drink = 0.6 oz pur e alcohol) [facility] Utilities Answer Date Recorded In the past 12 months has [employer] electric, gas, oil, or water company threatened [...] often do you attend chur ch or temple services? More than 4 times per year 12/19/2023 Do you belong to any clubs o r organizations such as religious groups, unions, fraternal or athletic groups, or [...] Date Recorded Total Score - Questions 1-9 3 09/2024 [facility] - Occupational Stress [...] place to sleep or slept in a nursing home (including now)? No 12/19/2023 Education Answer Date [...] on file documented as of this encounter Functional Status * Question Answer Date of Assessment Author Little interest or pleasure in doing things Not at all 12/20/2024 8:28 AM CDT Kathy Tay MA Feeling down, depressed, or hopeless Several days 12/20/2024 8:28 AM CDT Kathy Tay MA * Over the past 2 weeks, how often have you been bothered by any of the following problems? Question Answer Date of Assessment Author Patient Health Questionnaire -2 Score 1 12/20/2024 8:28 AM CDT Kathy Tay MA documented as of this encounter Miscellaneous Notes * Telephone Encounter - Ingrid Meneses RN - 12/19/2024 1:50 PM CDT SITUATION: back pain BACKGROUND: Patient contacting PCP office. Mid Back pain for 1.5 weeks. ASSESSMENT: Symptom Description / Location: Hurt when walking today Laying on flat back increases pain Mid Back pain Has mammogram 12/31/24 for follow up for seeing shadowing. Pain: 5/10 mid back Fever: Denies fever. Treatment / Response: Advil with no relief. RECOMMENDATION: Caller agreeable to disposition: See Today or Tomorrow. Care advice provided per triage guideline. Caller verbalized understanding. No available appointments in the office. She is requesting office appointment and PCP block noted tomorrow at 1145. Can we use the block for patient? Please all patient to advise. Thank You. Routed to it help desk manager high priority - See care advice and disposition for Guideline. First positive answer recorded, all responses to prior questions were negative. If symptoms increase, change or if new symptoms develop, call your health care provider or call back. Recommendations were based on caller information and is not a diagnosis. Verified and reviewed all triage information with caller. Reason for Disposition Age > 50 and no history of prior similar back pain Protocols used: Back Pain-A-[place] documented in this encounter Plan of Treatment Upcoming Encounters Date Type Department Care Team (Late st Contact Info) Description 02/13/2025 9:20 AM CDT Office Visit [facility] - [facility] Medicine - [place] [address] [place] [address] Aster Preston DO [address] [address] documented as of this encounter Visit Diagnoses Not on filedocumented in this encounter Additional Health Concerns Assessment Noted Time PHQ-9 Depression Total Score: 12 025 10:55 AM [employer] DEVELOPER documented as of this encounter Care Teams Medical Psychotherapist Relationship Specialty Start Date End Date Aster Preston DO 2 [facility] [address] [place] [address] PCP - General Family Medicine 12/19/23 documented as of this encounter
--- OUTSIDE RECORDS SUMMARY | 2025-01-03 13:05 | XMS_ITS | Clinical Summary ---
Author Organization [facility] Address [address] [place] [address] Care Team Providers Care District Service Manager Name Role Phone Aster Preston DO Primary Care Provider [phone] Source Comments [facility],non-owned Affiliates and Associated Physician Practices is amultiple site organization consisting of ambulatory clinics and hospital sitesin [place], [place], [place] and [place]. This disclosure is being madepursuant to the Care Everywhere program and may not contain all information available regarding this patient. Last updated 18.[facility] Allergies No known active allergies Medications * Be aware that medications may not be up to date on this document. Alwaysverify current medications with the patient. ALPRAZolam (Xanax) 0.5 MG tablet TAKE 1 TABLET THREE TIMES A DAY NEEDED FOR ANXIETY 3 Active ascorbic acid (VITAMIN C) 500 MG tablet 1 (one) tablet once daily Active B Complex Vitamins CAPS Take 1 capsule by mouth once daily Active buPROPion XL 24hr (Wellbutrin-XL) 150 MG tablet Take 1 (one) tablet by mouth every morning 4 Active cephalexin (Keflex) 500 MG capsule 4 Active vitamin D3 (Cholecalcifero l) 10 MCG (400 UNIT) capsule Active doxycycline hyclate (Vibramycin) 100 MG capsule 4 Active dupilumab (Dupixent) 200 MG/1.14ML pen Inject 200 mg every 2 weeks by subcutaneous route. Active dupilumab (Dupixent) 300 MG/2ML prefilled pen 4 Active hydrOXYzine HCl (Atarax) 25 MG tablet Take 1 (one) tablet by mouth every 6 hours as needed 4 Active levothyroxine (Synthroid) 100 MCG tablet 4 Active losartan (Cozaar) 100 MG tablet 3 Active Omeprazole Magnesium (PRILOSEC PO) QD Active predniSONE (Deltasone) 20 MG tablet 4 Active Active Problems Problem Noted Date Diagnosed Date Cholelithiasis 04/05/2024 Overview (07/08/2024): x2 Low vitamin D level 04/05/2024 Osteoporosis 04/05/2024 Atherosclerosis of aorta 10/30/2023 Onychomycosis of toenail 10/30/2023 Prurigo nodularis 10/30/2023 Increased frequency of urination 10/31/2022 Lichen simplex chronicus 10/31/2022 Encounter for screening colonoscopy 03/10/2021 Overview (07/08/2024): Added automatically from request for surgery [id number] History of colonic polyps 03/10/2021 Overview (07/08/2024): Added automatically from request for surgery [id number] Kidney stone 10/01/2020 Eczema 08/25/2020 History of squamous cell carcinoma of skin 08/25 Hypertension 08/25/2020 Hypothyroid 08/25/2020 Current moderate episode of major depressive disorder without prior episode 01/01/2019 Gastroesophageal reflux disease without esophagi tis 06/25/2018 Hyperglycemia 12/14/2017 Primary osteoarthritis of right knee 02/26/2017 Rhus dermatitis 02/22/2017 Depression 05/24/2016 Breast cancer screening 05/05/2016 Anxiety 11/03/2015 Physical exam 11/03/2015 Social History Tobacco Use Types Packs/Day Years Used Date Smoking Tobacco: Never Assessed Comments Unknown Sex and Gender Information Value Date Recorded Sex Assigned at Not on file Legal Sex Female 12:02 PM CDT Gender Identity Not on file Sexual Orientation Not on file Plan of Treatment Health Maintenance Due Date Last Done Comments MEDICARE AWV 12 MONTHS 1945 HEPATITIS C SCREENING 10/17/1964 DTAP/TDAP/TD VACCINES (1 - Tdap) 1965 PNEUMOCOCCAL VACCINE 50+ (1 of 1 - PCV) 1996 ZOSTER VACCINE (1 of 2) 1996 Respiratory Syncytial Virus (RSV) Vaccine Pt: or over 60 yrs (1 - 1-dose 75+ series) 2021 COVID-19 VACCINE (3 - season) 2024 11/27/2020, 11/23/2020 DEPRESSION SCREENING 08/21/2024 BONE DENSITY TESTING Completed 01/30/2023 INFLUENZA VACCINE Completed 05/20/2024, , 05/21/2022, Additional history exists HEPATITIS B VACCINE Aged Out No longe r eligible based on patient's age to complete this topic HIB VACCINE Aged Out No longer eligi ble based on patient's age to complete this topic HPV VACCINE Aged Out No longer eligi ble based on patient's age to complete this topic MENINGOCOCCAL (Group B) VACCINE SHARED DECISION-MAKING Aged Out No longer eligible based on patient's age to complete this topic MENINGOCOCCAL GROUPS A/C/Y/W VACCINE Aged Out No longer eligible based on patient's age to complete this topic Insurance MEDICARE [facility] Care Teams District Service Manager Relationship Specialty Start Date End Date Aster Preston DO [address] [place] [id number] PCP - General Family Medicine 07/08/24
--- OUTSIDE RECORDS SUMMARY | 2025-01-03 13:05 | XMS_ITS | Clinical Summary ---
Author Organization [facility] Address [address] [address] Phone Care Team Providers Care Musculoskeletal Physiotherapist Name Role Phone Aster Preston DO Primary Care Provider [phone] Allergies No known active allergies Medications Dupilumab (Dupixent) 100 MG/0.67ML Solution Prefilled Syringe by Subcutaneous route. Active levothyroxine (SYNTHROID) 100 MCG Tablet Take 1 Tablet by mouth daily. 90 Tablet 3 02/02/20 24 Active omeprazole (PriLOSEC) 20 MG CAPSULE DELAYED RELEASE TAKE 1 CAPSULE DAILY 90 Capsule 2 04/04/20 24 Active losartan (COZAAR) 100 MG Tablet Take 1 Tablet by mouth daily. 90 Tablet 3 08/15/20 24 Active ALPRAZolam (XANAX) 0.5 MG TabletIndicati ons:Anxiety with flying Take 1 Tablet by mouth 2 times daily as needed for Anxiety. 30 Tablet 08/15/20 24 Active buPROPion (Wellbutrin XL) 300 MG TABLET SR 24 HR XL tablet Take 1 Tablet by mouth every morning. 90 Tablet 11/16/19 25 Active citalopram (CeleXA) 20 MG Tablet Take 20 mg by mouth daily. Active ALPRAZolam (XANAX) 0.5 MG Tablet Take 0.5 mg by mouth daily. Active halobetasol (ULTRAVATE) 0.05 % Ointment Active gentamicin (GARAMYCIN) 0.1 % Ointment 10/30/19 25 Active escitalopram (LEXAPRO) 20 MG Tablet Active doxycycline hyclate (VIBRAMYCIN) 100 MG Capsule 10/15/19 25 Active buPROPion (WELLBUTRIN) 150 MG XL tablet Active Dupixent 300 MG/2ML Solution Auto-injector 11/22/19 25 Active methylPREDNISo lone (MEDROL DOSPACK) 4 MG Tablet Therapy PackIndication s:Bilateral thoracic back pain, unspecified chronicity Follow instructions on pack, take with food; Give one pack 21 Tablet 12/21/19 25 Active methylPREDNISo lone (MEDROL DOSPACK) 4 MG Tablet Therapy PackIndication s:Bilateral thoracic back pain, unspecified chronicity Follow instructions on pack, take with food; Give one pack 21 Tablet 12/21/19 25 025 Discontinued Active Problems Problem Noted Date Diagnosed Date Eczema 08/26/2020 History of squamous cell carcinoma of skin 08/26 Current moderate episode of major depressive disorder without prior episode 01/01/2019 Gastroesophageal reflux disease without esophagi tis 06/25/2018 Hyperglycemia 12/14/2017 Rhus dermatitis 02/22/2017 Depression 05/24/2016 Breast cancer screening 05/05/2016 Physical exam 11/03/2015 Anxiety 11/03/2015 Hypothyroid Hypertension Osteoporosis Low vitamin D level Cholelithiasis Overview (08/07/2015): x2 Encounters Date Type Department Care Team Description 12/31/2024 1:11 PM CDT - 12/31/2024 11:59 PM CDT [facility] Ul[facility]ound [address] [place] [address] Aster Preston, DO Discharge Disposition: Discharged to home or Selfcare 12/31/2024 12:16 PM CDT - 12/31/2024 1:10 PM CDT [facility] Mammography [address] [place] [address] Aster Preston, Discharge Disposition: Discharged to home or Selfcare 12/31/2024 Results Follow-Up [facility] [address] [place] [address] Aster Preston, JOURDAN US BREAST LIMITED RT 12/31/2024 Travel 12/27/2024 Results Follow-Up [facility] [address] [place] [address] Marguerite Veras, EXPERIMENTAL TECHNICIAN, CONSUMER CREDIT COUNSELOR XR THORACIC SPINE, COMPLETE 3 VIEWS 12/20/2024 9:19 AM CDT - 12/20/2024 11:59 PM CDT Hospital Encounter [facility] [address] [place] [address] Marguerite Veras, EXPERIMENTAL TECHNICIAN, CONSUMER CREDIT COUNSELOR Discharge Disposition: Discharged to home or Selfcare 12/20/2024 8:15 AM CDT Office Visit [facility] [address] [place] [address] Marguerite Veras, EXPERIMENTAL TECHNICIAN, CONSUMER CREDIT COUNSELOR Bilateral thoracic back pain, unspecified chronicity (Primary Dx); Stress at home Discharge Disposition: Discharged to home or Selfcare 12/20/2024 Travel 12/19/2024 Nurse Triage [facility] [address] [place] [phone] Aster Preston, Back Pain 11/13/2024 Refill [facility] [address] [place] [address] Aster Preston, Medication Refill 10/07/2024 Nurse Triage [facility] [address] [place] [address] Aster Preston, Constipation; Insomnia; Advice Only from Last 3 Months Immunizations Immunization Administration Dates Next Due Covid-19 Vaccine, Vector-nr, Rs-ad26, Pf, 0.5 Ml ([employer]) 11/27/2020 Covid-19, Mrna, Lnp-s, Pf, 1 00 Mcg Or 50 Mcg Dose (MODERNA) 11/23/2020 Influenza Vaccine 05/15/2017 Influenza Vaccine greater than 3 yrs 07/22/2015 11/25/2015 Influenza Vaccine, Quadrivalent, PF 1011/2022,04/28/2021,04/28/2020,06/21,06/25/2018,05/16/2017 Influenza Vaccine,unspecifie d Formulation 05/21/2022,07/21/2015 Influenza, High-dose, Quadrivalent 04/21/2021, Influenza, Seasonal, Injecta ble, Undefined 07/22/2015 Influenza, Trivalent, Adjuvanted, PF 05/20/2024 Influenza, high-dose, trivalent, PF 05/05/2016 PUR FLU HIGH DOSE (FLUZONE) 05/05/2016 PUR PCV-13 11/03/2015 Pneumococcal PCV, Unspecifie d Formulation 08/21/2011 Pneumococcal Vaccine - 13 Valent 11/03/2015 Pneumococcal Vaccine, Unspec ified Formulation 08/21/2012,08/21/2011 Pneumococcal conjugate PCV20 , polysaccharide [id number] conjugate, adjuvant, PF 10/30/2023 TDAP Vaccine 04/21/2008 Zoster Vaccine Recombinant 11/21/2023,09/19/2023 Zoster Vaccine, live 08/21/2011 Family History Medical History Relation Name Comments Heart Attack Father My father He passed in 19 68 Hypertension Father My father Dementia Mother Hypertension Mother Relation Name Status Comments Father My father Mother Social History Tobacco Use Types Packs/Day Years Used Date Smoking Tobacco: Never Smokeless Tobacco: Never Tobacco Cessation:Counseling Given: No Alcohol Use Standard Drinks/Week Comments Yes 2 (1 standard drink = 0.6 oz pur e alcohol) [facility] [employer] Answer Date Recorded In the past 12 months has [employer], gas, oil, or water [employer] threatened to shut off services in your [...] week 12/19/2023 How often do you attend [facility] or mormon services? More than 4 times per year 12/19/2023 Do you belong to any clubs o r organizations such as jew groups, unions, fraternal or athletic groups, or [...] Total Score - Questions 1-9 3 09/2024 [facility] - Occupational [...] place to sleep or slept in a mcfp (including now)? No 12/19/2023 Education Answer Date [...] Sign Reading Time Taken Comments Blood Pressure 136/72 12/20/2024 8:28 AM CDT Pulse 68 12/20/2024 8:28 AM CDT Temperature 35.8 C (96.5 F) 12/20/2024 8:28 AM CDT Respiratory Rate 16 12/20/2024 8:28 AM CDT Oxygen Saturation 93% 12/20/2024 8:28 AM CDT Inhaled Oxygen Concentration - - Weight 78.9 kg (174 lb) 12/20/2024 8:28 AM CDT Height 157.5 cm (5' 2 ) 12/20/2024 8:28 AM CDT Body Mass Index 31.83 12/20/2024 8:28 AM CDT Plan of Treatment Upcoming Encounters Date Type Department Care Team (Late st Contact Info) Description 02/13/2025 9:20 AM CDT Office Visit [facility] [place] [address] [place] [address] Aster Preston, DO [address] [place] [address] Health Maintenance Due Date Last Done Comments Hepatitis C Virus (HCV) Screening 1945 Td Immunization Every 10 Years (Adults With 1 Tdap) 04/21/2018 04/21/2008 Respiratory Syncytial Virus (RSV) Immunization (Adult) (1 - 1-dose 75+ series) 2021 SARS-COV-2 Immunization ( season) 2024 11/27/2020, 11/23/2020 DEXA Bone Density 01/30/2025 01/30/2023 Colonoscopy High Risk Discontinued 07/27/2022 , 07/28/2021, 07/28/2021, Additional history exists Colonoscopy Discontinued 07/27/2022, 03/2021, 07/28/2021, Additional history exists Colorectal Cancer Screening Discontinued Pneumococcal Immunization (50+ years) Completed 10/30/2023, 11/03/2015, 11/03/2015, Additional history exists Pneumococcal Immunization Combined Discontinued 10/30/2023, 11/03/2015, 11/03/2015, Additional history exists Zoster Immunization Completed 11/21/2023, 09/19/2023, 08/21/2011 Influenza Immunization Completed , 04/21/2024, 05/24/2023, Additional history exists Mammogram Discontinued 06/01/2024, 11/2022, 04/12/2022, Additional history exists Cologuard Discontinued Hepatitis B Immunization Aged Out No longer eligible based on patient's age to complete this topic Human Papillomavirus (HPV) Immunization Aged Out No longer eligible based on patient's age to complete this topic Immunochemical Fecal Occult Blood Discontinued Meningococcal Immunization (ACWY) Aged Out No longer eligible based on patient's age to complete this topic Rotavirus Immunization Aged Out No lo nger eligible based on patient's age to complete this topic Procedures Procedure Name Priority Date/Time Associated Diagnosis Comments JOURDAN US BREAST LIMITED RT Routine 12/31/2024 2:00 PM CDT Abnormal mammogram J[facility] DIAG RIGHT UNILATERAL DIGITAL W CAD W JULIAN Routine 12/31/2024 1:18 PM CDT Abnormal mammogram XR THORACIC SPINE, COMPLETE 3 VIEWS Routine 12/20/2024 9:51 AM CDT Bilateral thoracic back pain, unspecified chronicity [facility] SCREENING BILATERAL DIGITAL W CAD W JULIAN Routine 06/01/2024 8:15 AM CDT Encounter for screening mammogram for malignant neoplasm of breast [facility] BONE DENSITOMETRY AXIAL SKELETON Routine 01/30/2023 9:10 AM CDT Asymptomatic menopausal state HM COLONOSCOPY 07/28/2021 12:00 AM CLINICAL BIOCHEMIST from Last 3 Months or Most Recently Relevant to Health Maintenance Results * [facility] US BREAST LIMITED RT (12/31/2024 2:00 PM CDT) Anatomical Region Laterality Modality breast Right Ultrasound 12/31/2024 12:1 6 PM CDT Narrative 12/31/2024 2:34 PM CDT - [facility] DIAG RIGHT UNILATERAL DIGITAL W CAD W JULIAN - [facility] US BREAST LIMITED RT UNILATERAL RIGHT DIGITAL DIAGNOSTIC MAMMOGRAM 3D/2D WITH CAD WITH MEDIOLATERAL OBLIQUE CRANIOCAUDAL AND RIGHT ULTRASOUND: 12/31/2024 The study was acquired using digital technology and interpreted from soft copy. Current study was also evaluated with ICAD version 7.2. 2D digital mammographic views, as well as 3D digital tomosynthesis were performed in the CC and MLO projections. CLINICAL: Diagnostic study. Patient returns for a 6 month follow-up right breast. No personal history of cancer. No family history of breast cancer. COMPARISONS: Comparison is made to exams dated: 06/01/2024, 07/05/2024, 04/12/2022, and 05/24/2023 [facility] BREAST TISSUE:There are scattered areas of fibroglandular density. FINDINGS: RIGHT DIAGNOSTIC MAMMOGRAM: There is a stable focal asymmetry at the 3 o'clock position of the right breast anteriorly. No other significant masses or calcifications are seen in the breast on the mammogram. Further evaluation was obtained with sonography. TARGETED RIGHT BREAST ULTRASOUND: At the 2 o'clock position of the right breast, 4 cm from nipple, there is a stable 5 mm hypoechoic lesion. This may be a complex cyst and likely corresponds to the mammographic finding. This we will continue to be classified as probably benign. IMPRESSION: OVERALL STUDY BIRADS: CATEGORY 3: PROBABLY BENIGN Lesion in the right breast is likely a complex cyst and will continue to be classified as probably benign. A follow-up mammogram and an ultrasound in 6 months are recommended to demonstrate stability. The results and recommendations were discussed with the patient. Electronically signed by: Alexis Henderson M.D. ll/:12/31/2024 14:04:41 Life Insurance Specialist(s): Cortney Reveles, RT(R)(M), [facility]; Ludy Singer RDMS OBGYAngie, [facility] letter sent: Birad 3 Followup Reading location: [facility] OVERALL STUDY BIRADS: Category 3: Probably Benign Procedure Note Alexis Henderson MD - 12/31/2024 - JOURDAN DIAG RIGHT UNILATERAL DIGITAL W CAD W JULIAN - [facility] US BREAST LIMITED RT UNILATERAL RIGHT DIGITAL DIAGNOSTIC MAMMOGRAM 3D/2D WITH CAD WITH MEDIOLATERAL OBLIQUE CRANIOCAUDAL AND RIGHT ULTRASOUND: 12/31/2024 The study was acquired using digital technology and interpreted from soft copy. Current study was also evaluated with ICAD version 7.2. 2D digital mammographic views, as well as 3D digital tomosynthesis were performed in the CC and MLO projections. CLINICAL: Diagnostic study. Patient returns for a 6 month follow-up right breast. No personal history of cancer. No family history of breast cancer. COMPARISONS: Comparison is made to exams dated: 06/01/2024, 07/05/2024, 04/12/2022, and 05/24/2023 [facility]. BREAST TISSUE:There are scattered areas of fibroglandular density. FINDINGS: RIGHT DIAGNOSTIC MAMMOGRAM: There is a stable focal asymmetry at the 3 o'clock position of the right breast anteriorly. No other significant masses or calcifications are seen in the breast on the mammogram. Further evaluation was obtained with sonography. TARGETED RIGHT BREAST ULTRASOUND: At the 2 o'clock position of the right breast, 4 cm from nipple, there is a stable 5 mm hypoechoic lesion. This may be a complex cyst and likely corresponds to the mammographic finding. This we will continue to be classified as probably benign. IMPRESSION: OVERALL STUDY BIRADS: CATEGORY 3: PROBABLY BENIGN Lesion in the right breast is likely a complex cyst and will continue to be classified as probably benign. A follow-up mammogram and an ultrasound in 6 months are recommended to demonstrate stability. The results and recommendations were discussed with the patient. Electronically signed by: Alexis Henderson M.D. ll/:12/31/2024 14:04:41 Life Insurance Specialist(s): Cortney Reveles, RT(R)(M), [facility]; Ludy Singer RDMS OBLEIGHA, [facility] letter sent: Birad 3 Followup Reading location: [facility] OVERALL STUDY BIRADS: Category 3: Probably Benign us Aster Mariano Preston DO IMG MAMMO ORDERABLES Final Re sult * JOUR[facility]AN DIAG RIGHT UNILATERAL DIGITAL W CAD W JULIAN (12/31/2024 1:18 PM CDT) Anatomical Region Laterality Modality breast Right Mammography 12/31/2024 12:1 6 PM CDT Narrative 12/31/2024 2:34 PM CDT - [facility] DIAG RIGHT UNILATERAL DIGITAL W CAD W JULIAN - [facility] US BREAST LIMITED RT UNILATERAL RIGHT DIGITAL DIAGNOSTIC MAMMOGRAM 3D/2D WITH CAD WITH MEDIOLATERAL OBLIQUE CRANIOCAUDAL AND RIGHT ULTRASOUND: 12/31/2024 The study was acquired using digital technology and interpreted from soft copy. Current study was also evaluated with ICAD version 7.2. 2D digital mammographic views, as well as 3D digital tomosynthesis were performed in the CC and MLO projections. CLINICAL: Diagnostic study. Patient returns for a 6 month follow-up right breast. No personal history of cancer. No family history of breast cancer. COMPARISONS: Comparison is made to exams dated: 06/01/2024, 07/05/2024, 04/12/2022, and 05/24/2023 [facility]. BREAST TISSUE:There are scattered areas of fibroglandular density. FINDINGS: RIGHT DIAGNOSTIC MAMMOGRAM: There is a stable focal asymmetry at the 3 o'clock position of the right breast anteriorly. No other significant masses or calcifications are seen in the breast on the mammogram. Further evaluation was obtained with sonography. TARGETED RIGHT BREAST ULTRASOUND: At the 2 o'clock position of the right breast, 4 cm from nipple, there is a stable 5 mm hypoechoic lesion. This may be a complex cyst and likely corresponds to the mammographic finding. This we will continue to be classified as probably benign. IMPRESSION: OVERALL STUDY BIRADS: CATEGORY 3: PROBABLY BENIGN Lesion in the right breast is likely a complex cyst and will continue to be classified as probably benign. A follow-up mammogram and an ultrasound in 6 months are recommended to demonstrate stability. The results and recommendations were discussed with the patient. Electronically signed by: Alexis Henderson M.D. ll/:12/31/2024 14:04:41 Life Insurance Specialist(s): Cortney Reveles, RT(R)(M), [facility]; MAUREEN Lynch, [facility] letter sent: Birad 3 Followup Reading location: [facility] OVERALL STUDY BIRADS: Category 3: Probably Benign Procedure Note Alexis Henderson MD - 12/31/2024 - JOURDAN DIAG RIGHT UNILATERAL DIGITAL W CAD W JULIAN - [facility] US BREAST LIMITED RT UNILATERAL RIGHT DIGITAL DIAGNOSTIC MAMMOGRAM 3D/2D WITH CAD WITH MEDIOLATERAL OBLIQUE CRANIOCAUDAL AND RIGHT ULTRASOUND: 12/31/2024 The study was acquired using digital technology and interpreted from soft copy. Current study was also evaluated with ICAD version 7.2. 2D digital mammographic views, as well as 3D digital tomosynthesis were performed in the CC and MLO projections. CLINICAL: Diagnostic study. Patient returns for a 6 month follow-up right breast. No personal history of cancer. No family history of breast cancer. COMPARISONS: Comparison is made to exams dated: 06/01/2024, 07/05/2024, 04/12/2022, and 05/24/2023 [facility]. BREAST TISSUE:There are scattered areas of fibroglandular density. FINDINGS: RIGHT DIAGNOSTIC MAMMOGRAM: There is a stable focal asymmetry at the 3 o'clock position of the right breast anteriorly. No other significant masses or calcifications are seen in the breast on the mammogram. Further evaluation was obtained with sonography. TARGETED RIGHT BREAST ULTRASOUND: At the 2 o'clock position of the right breast, 4 cm from nipple, there is a stable 5 mm hypoechoic lesion. This may be a complex cyst and likely corresponds to the mammographic finding. This we will continue to be classified as probably benign. IMPRESSION: OVERALL STUDY BIRADS: CATEGORY 3: PROBABLY BENIGN Lesion in the right breast is likely a complex cyst and will continue to be classified as probably benign. A follow-up mammogram and an ultrasound in 6 months are recommended to demonstrate stability. The results and recommendations were discussed with the patient. Electronically signed by: Alexis Henderson M.D. ll/:12/31/2024 14:04:41 Life Insurance Specialist(s): Cortney Reveles, RT(R)(M), [facility]; Ludy Singer, MAUREEN [facility]BGYN, [facility] letter sent: Birad 3 Followup Reading location: [facility] OVERALL STUDY BIRADS: Category 3: Probably Benign us Aster Preston DO IMG MAMMO ORDERABLES Final Re sult * XR THORACIC SPINE, COMPLETE 3 VIEWS (12/20/2024 9:51 AM CDT) Anatomical Region Laterality Modality Spine, T-spine N/A Digital Radiogra phy 12/25/2024 9:58 PM CDT Impressions 12/25/2024 10:00 PM CDT IMPRESSION: 1. Unremarkable radiographs of the thoracic spine. 2. Moderate cervical disc disease. Narrative 12/25/2024 10:00 PM CDT EXAM DESCRIPTION: XR THORACIC SPINE, COMPLETE 3 VIEWS REASON FOR STUDY: mid back pain x 2 weeks. NKI. pt denies numbness/tingling in extremities. denies radiating pain. TECHNIQUE: Frontal, lateral, and swimmer views of the thoracic spine COMPARISON: None FINDINGS: VERTEBRAE: Vertebral bodies are normal in height and alignment. Moderate midcervical disc disease. Thoracic disc spaces are well preserved. OTHER OSSEOUS: Visualized ribs and clavicles intact. SOFT TISSUES: Included heart, lungs, and upper abdomen unremarkable. THIS IS AN ELECTRONICALLY VERIFIED FINAL REPORT 12/25/2024 9:58 PM - Electronically signed by Kevin Herrera M.D. AR: CHARMAINE Report ID: [id number] Reading Location: [id number] Procedure Note Kevin Herrera MD - 12/25/2024 EXAM DESCRIPTION: XR THORACIC SPINE, COMPLETE 3 VIEWS REASON FOR STUDY: mid back pain x 2 weeks. NKI. pt denies numbness/tingling in extremities. denies radiating pain. TECHNIQUE: Frontal, lateral, and swimmer views of the thoracic spine COMPARISON: None FINDINGS: VERTEBRAE: Vertebral bodies are normal in height and alignment. Moderate midcervical disc disease. Thoracic disc spaces are well preserved. OTHER OSSEOUS: Visualized ribs and clavicles intact. SOFT TISSUES: Included heart, lungs, and upper abdomen unremarkable. THIS IS AN ELECTRONICALLY VERIFIED FINAL REPORT 12/25/2024 9:58 PM - Electronically signed by Kevin Herrera M.D. AR: CHARMAINE Report ID: [id number] Reading Location: [id number] IMPRESSION: 1. Unremarkable radiographs of the thoracic spine. 2. Moderate cervical disc disease. [facility] EXPERIMENTAL TECHNICIAN, CONSUMER CREDIT COUNSELOR IMG DIAGNOSTIC ORDERABLES Final Result * J[facility] SCREENING BILATERAL DIGITAL W CAD W JULIAN (06/01/2024 8:15 AM CDT) Anatomical Region Laterality Modality breast Bilateral Mammography 06/01/2024 8:14 AM CDT Narrative 06/04/2024 9:22 AM CDT - JOUR[facility]AN SCREENING BILATERAL DIGITAL W CAD W JULIAN BILATERAL DIGITAL SCREENING MAMMOGRAM 3D/2D WITH CAD WITH MEDIOLATERAL OBLIQUE CRANIOCAUDAL: 06/01/2024 The study was acquired using digital technology and interpreted from soft copy. Current study was also evaluated with ICAD version 7.2. 2D digital mammographic views, as well as 3D digital tomosynthesis were performed in the CC and MLO projections. CLINICAL: Routine screening. Patient has no complaints. No personal history of cancer. No family history of breast cancer. COMPARISONS: Comparison is made to exams dated: 05/24/2023, 04/12/2022, and 03/15/2021 [facility]. BREAST TISSUE:There are scattered areas of fibroglandular density. FINDINGS: There is a focal asymmetry in the right breast at 3 o'clock anterior depth. No other significant masses, calcifications, or other findings are seen in either breast. IMPRESSION: INCOMPLETE: NEED ADDITIONAL IMAGING EVALUATION The focal asymmetry in the right breast is indeterminate. An immediate follow-up is recommended. A letter will be sent to the patient with these results. Electronically signed by: Alexis Henderson M.D. /penrad:06/03/2024 19:19:58 Life Insurance Specialist(s): RT Gisselle(R)(M), [facility] letter sent: Additional Imaging Reading location: [facility] Mammogram BI-RADS: Category 0: Incomplete: Need Additional Imaging Evaluation Procedure Note Alexsi Henderson MD - 06/04/2024 - JOURDAN SCREENING BILATERAL DIGITAL W CAD W JULIAN BILATERAL DIGITAL SCREENING MAMMOGRAM 3D/2D WITH CAD WITH MEDIOLATERAL OBLIQUE CRANIOCAUDAL: 06/01/2024 The study was acquired using digital technology and interpreted from soft copy. Current study was also evaluated with ICAD version 7.2. 2D digital mammographic views, as well as 3D digital tomosynthesis were performed in the CC and MLO projections. CLINICAL: Routine screening. Patient has no complaints. No personal history of cancer. No family history of breast cancer. COMPARISONS: Comparison is made to exams dated: 05/24/2023, 04/12/2022, and 03/15/2021 [facility]. BREAST TISSUE:There are scattered areas of fibroglandular density. FINDINGS: There is a focal asymmetry in the right breast at 3 o'clock anterior depth. No other significant masses, calcifications, or other findings are seen in either breast. IMPRESSION: INCOMPLETE: NEED ADDITIONAL IMAGING EVALUATION The focal asymmetry in the right breast is indeterminate. An immediate follow-up is recommended. A letter will be sent to the patient with these results. Electronically signed by: Alexis boateng/penrad:06/03/2024 19:19:58 Life Insurance Specialist(s): RT Gisselle(R)(M), [facility] letter sent: Additional Imaging Reading location: [facility] Mammogram BI-RADS: Category 0: Incomplete: Need Additional Imaging Evaluation us Aster Preston DO IMG MAMMO ORDERABLES Final Re sult * [facility] BONE DENSITOMETRY AXIAL SKELETON (01/30/2023 9:10 AM CDT) Anatomical Region Laterality Modality BODY N/A Computed Radiogr aphy 01/30/2023 9:20 AM CDT Impressions 01/30/2023 9:23 AM CDT IMPRESSION: Osteoporosis. REFERENCE: Bone mineral density: Normal (T-score above or = -1.0) Low bone mass (T-score between -1.0 and -2.5) replaces the previously used term osteopenia Osteoporosis (T-score = or below -2.5) Medical evaluation for secondary causes of low bone mineral density may be appropriate. FRAX is a World Health Organization validated fracture risk assessment tool that calculates a person's 10 year probability of a major osteoporosis related fracture and hip fracture. According to the National Osteoporosis Foundation guidelines, postmenopausal women and men age 50 or older with low bone mass and a 10 year probability of a major osteoporosis related fracture = or greater than 20% or a 10 year probability of a hip fracture = or greater than 3% should be considered for treatment. For further information, including treatment recommendations, please refer to the 2019 ISCD Official Positions (http://www.iscd.org) and the NOF's Clinician's Guide to Prevention and Treatment of Osteoporosis (http://www.nof.org/professionals/clinical-guidelines) Narrative 01/30/2023 9:23 AM CDT EXAM DESCRIPTION: [facility] BONE DENSITOMETRY AXIAL SKELETON REASON FOR STUDY: 77 y/o year old F with given history of screening. Serging Machine Operator/Model: UiTV (S/N [id number]) CLINICAL INFORMATION: Current height: 5 foot 2 inches Maximum height: 5 foot 2 inches Weight: 170 pounds Risk factors: Adult fracture. COMPARISON: None available FINDINGS: AP LUMBAR SPINE L1-L4: Total BMD is 0.962 g/cm2 T-score is -1.9 LEFT HIP: Total BMD is 0.781 g/cm2 T-score is -1.8 Femoral neck BMD is 0.666 g/cm2 T-score is -2.7 FRAX: 10 year risk for a major osteoporotic fracture is 26.4 %, 10 year risk for a hip fracture is 8.6 % THIS IS AN ELECTRONICALLY VERIFIED FINAL REPORT 01/30/2023 9:20 AM - Electronically signed by Claude Hunter M.D. AG: LYN Report ID: [id number] Reading Location: [place] [id number] Procedure Note Claude Hunter MD - 01/30/2023 EXAM DESCRIPTION: [facility] BONE DENSITOMETRY AXIAL SKELETON REASON FOR STUDY: 77 y/o year old F with given history of screening. 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 COMPARISON: None available FINDINGS: AP LUMBAR SPINE L1-L4: Total BMD is 0.962 g/cm2 T-score is -1.9 LEFT HIP: Total BMD is 0.781 g/cm2 T-score is -1.8 Femoral neck BMD is 0.666 g/cm2 T-score is -2.7 FRAX: 10 year risk for a major osteoporotic fracture is 26.4 %, 10 year risk for a hip fracture is 8.6 % THIS IS AN ELECTRONICALLY VERIFIED FINAL REPORT 01/30/2023 9:20 AM - Electronically signed by Claude Hunter M.D. AG: LYN Report ID: [id number] Reading Location: [place] [id number] IMPRESSION: Osteoporosis. REFERENCE: Bone mineral density: Normal (T-score above or = -1.0) Low bone mass (T-score between -1.0 and -2.5) replaces the previously used term osteopenia Osteoporosis (T-score = or below -2.5) Medical evaluation for secondary causes of low bone mineral density may be appropriate. FRAX is a World Health Organization validated fracture risk assessment tool that calculates a person's 10 year probability of a major osteoporosis related fracture and hip fracture. According to the National Osteoporosis Foundation guidelines, postmenopausal women and men age 50 or older with low bone mass and a 10 year probability of a major osteoporosis related fracture = or greater than 20% or a 10 year probability of a hip fracture = or greater than 3% should be considered for treatment. For further information, including treatment recommendations, please refer to the 2019 ISCD Official Positions (http://www.iscd.org) and the NOF's Clinician's Guide to Prevention and Treatment of Osteoporosis (http://www.nof.org/professionals/clinical-guidelines) us Melissa Tenorio EXPERIMENTAL TECHNICIAN, CONSUMER CREDIT COUNSELOR IMG DEXA ORDERABLES Final Result * HM COLONOSCOPY (07/28/2021 12:00 AM CLINICAL BIOCHEMIST) 07/28/2021 us Not On File Provider PROCEDURE/MINOR SURGICAL OR DERABLES Final Result SCAN from Last 3 Months or Most Recently Relevant to Health Maintenance Insurance [employer] Care Teams Musculoskeletal Physiotherapist Relationship Specialty Start Date End Date Aster Preston DO [address] ELYSSARae[place] [address] [place] [id number] PCP - General Family Medicine 12/19/23
[2025-01-03 13:39] LABS: Basophils Absolute Auto 0.1 K/mm3 (0.0-0.1); Basophils Percent Auto 0.6 % (0.2-1.2); Eosinophils Absolute Auto 0.2 K/mm3 (0-0.3); Eosinophils Percent Auto 1.5 % (0-4.4); Hematocrit 48.9 % (37.0-47.0); Hemoglobin 15.3 g/dL (12.0-15.0); Immature Granulocyte Absolute 0.11 K/mm3 (0.00-0.031); Immature Granulocyte Percent A 0.8 % (0-0.5); Lymphocytes Absolute Auto 1.48 K/mm3 (0.9-3.2); Lymphocytes Percent Auto 11.1 % (18.3-44.2); Mean Corpuscular HGB Conc 31.3 g/dl (32-36); Mean Corpuscular Hemoglobin 30.8 pg (26-34); Mean Corpuscular Volume 98.4 fl (80-100); Mean Platelet Volume 11.3 fl (7.4-10.4); Monocytes Absolute Auto 0.8 K/mm3 (0.1-0.6); Monocytes Percent Auto 6.2 % (2.6-8.5); Neutrophils Absolute Auto 10.7 K/mm3 (1.3-6.7); Neutrophils Percent Auto 79.8 % (45.5-73.1); Platelet Count Result 228 k/mm3 (150-375); Red Blood Count 4.97 M/mm3 (4.2-5.4); Red Cell Distribution Width 13.2 % (11.5-14.5); White Blood Count 13.4 K/mm3 (4.5-10.0)
[2025-01-03] MEDS: SODIUM CHLORIDE 0.9% IV 1,000 ML 999 ML IV CONT (13:46)
--- NOTE | 2025-01-03 13:46 | ED_ITS ---
HPI - Syncope General Chief Complaint: Syncope Stated Complaint: syncope Time Seen by Provider: 01/03/25 12:50 History of Present Illness HPI narrative: Patient is a 79-year-old female who presents ER after having an episode of syncope. She had been working out in her yd for couple of hours and was doing some hedge trimming. She was getting hot and lightheaded and weak. She walked up a hill and became more weak. She was sat down into a chair when she then lost consciousness. She did not fall and strike her head. No racing heart. No chest pain. She had not been drinking water. No other complaints. Related Data Home Medications Medication Instructions Recorded Confirmed Last Taken Type escitalopram oxalate 10 mg tablet 20 mg PO DAILY 12/11/22 03/08/23 Unknown History levothyroxine 100 mcg tablet 100 mcg PO DAILY 12/11/22 03/08/23 Unknown History losartan 100 mg tablet 100 mg PO DAILY 12/11/22 03/08/23 Unknown History omeprazole 20 mg capsule,delayed 20 mg PO DAILY 12/11/22 03/08/23 Unknown History release Allergies Allergy/AdvReac Type Severity Reaction Status Date / Time No Known Allergies Allergy Verified 03/08/23 09:54 Review of Systems 2 Review of Systems: All systems reviewed & are unremarkable except as noted in HPI and below Constitutional: Constitutional: Reports no additional constitutional complaints Cardiovascular: Cardiovascular: Reports no additional cardiovascular complaints Respiratory: Respiratory: Reports no additional respiratory complaints Gastrointestinal: Gastrointestinal: Reports no additional gastrointestinal complaints Musculoskeletal: Musculoskeletal: Reports no additional musculoskeletal complaints [facility] Past Medical History Medical History Encounter for postoperative care Family History Family History Father Heart attack Father Hypertension Social History Social History Smoking status: Never smoker Alcohol intake: current Drinks per week: 2 Substance use: never Lack of Transportation: No Lack of Food: Never True Current Housing: I Have Housing Concerned About Future Housing: No Difficulty Paying Gas/Electric Bills: No Difficulty Paying for Meds: No Currently Unemployed: No Education: High School Diploma/GED Difficulty w/ Childcare or Family Care: No Spiritual care concerns: No Exam 2 Narrative: GENERAL: Well-appearing, well-nourished, and in no acute distress. HEAD: Normocephalic, atraumatic. ENT: Mucous membranes moist. CHEST: Clear to auscultation. No respiratory distress. HEART: Regular rate and rhythm. Normal peripheral pulses. ABDOMEN: Soft, nontender, nondistended. EXTREMITIES: Normal range of motion. No edema. SKIN: Warm, dry, no rash. NEURO: Alert and oriented x3. PSYCH: Normal mood and affect. Course Course Emergency Course: Feeling better with fluids. Negative orthostatics. Labs with mildly elevated white blood cell count which is nonspecific, creatinine elevated as is BUN due to dehydration consistent with patient's history. No UTI and pneumonia. Vital Signs Vital signs: Vital Signs Temperature 97.2 F L 01/03/25 12:18 Pulse Rate 53 L 01/03/25 12:18 Respiratory Rate 18 01/03/25 12:18 Blood Pressure 122/62 01/03/25 12:18 Pulse Oximetry 97 01/03/25 12:18 Oxygen Delivery Room Air 01/03/25 12:18 Temperature 97.2 F L 01/03/25 12:18 Pulse Rate 64 01/03/25 15:01 Respiratory Rate 18 01/03/25 12:18 Blood Pressure 157/74 H 01/03/25 15:01 Pulse Oximetry 97 01/03/25 12:18 Oxygen Delivery Room Air 01/03/25 12:18 MDM - Syncope Lab Data 01/03/25 13:23 01/03/25 13:23 Labs: Lab Results 01/03/25 Range/Units 13:23 WBC 13.4 H (4.5-10.0) K/mm3 RBC 4.97 (4.2-5.4) M/mm3 Hgb 15.3 H (12.0-15.0) g/dL Hct 48.9 H (37.0-47.0) % MCV 98.4 (80-100) fl MCH 30.8 (26-34) pg MCHC 31.3 L (32-36) g/dl RDW 13.2 (11.5-14.5) % Plt Count 228 (150-375) k/mm3 MPV 11.3 H (7.4-10.4) fl Immature Gran % (Auto) 0.8 H (0-0.5) % Neut % (Auto) 79.8 H (45.5-73.1) % Lymph % (Auto) 11.1 L (18.3-44.2) % [place] % (Auto) 6.2 (2.6-8.5) % Eos % (Auto) 1.5 (0-4.4) % Baso % (Auto) 0.6 (0.2-1.2) % Lymph # (Auto) 1.48 (0.9-3.2) K/mm3 [place] # (Auto) 0.8 H (0.1-0.6) K/mm3 Eos # (Auto) 0.2 (0-0.3) K/mm3 Baso # (Auto) 0.1 (0.0-0.1) K/mm3 Abs Immat Gran (auto) 0.11 H (0.00-0.031) K/mm3 Absolute Neuts (auto) 10.7 H (1.3-6.7) K/mm3 Absolute Nucleated RBC 0.000 (0.0-0.012) K/mm3 Nucleated RBC % 0.0 (0.0-0.2) % Sodium 138 (137-145) mmol/L Potassium 4.3 (3.4-5.0) mmol/L Chloride 100 (98-107) mmol/L Carbon Dioxide 30 (22-30) mmol/L Anion Gap 8 (4-12) mmol/L BUN 28 H D (7-17) mg/dL Creatinine 1.22 H (0.7-1.0) mg/dL Estim Creat Clear Calc 33 ml/min Estimated GFR 43 L (59 - ) Glucose 122 H (65-110) mg/dL Calcium 9.3 (8.4-10.2) mg/dL Total Bilirubin 0.8 (0.2-1.3) mg/dL AST 56 H (14-36) U/L ALT 51 H (6-35) U/L Alkaline Phosphatase 107 (38-126) U/L Total Creatine Kinase 86 (30-135) U/L Total Protein 7.0 (6.3-8.2) g/dL Albumin 4.4 (3.5-5.1) g/dL Urine Color Dark yellow (Yellow) Urine Appearance Clear (Clear) Urine pH 5.5 (5.0-9.0) Ur Specific [place] 1.030 (1.001-1.035) Urine Protein 1+ H (Negative) mg/dL Urine Glucose (UA) Negative (Negative) mg/dL Urine Ketones 1+ H (Negative) mg/dL Ur Blood (Man) Negative (Negative) Urine Nitrate Negative (Negative) Urine Bilirubin 1+ H (Negative) Urine Urobilinogen 1.0 (<2.0) mg/dL Add Ur Microanalysis Reviewed Leukocyte Esterase Rfl 1+ H (Negative) MAXX/UL Urine RBC 0-2 (0-2) /hpf Urine WBC 0-5 (0-3) /hpf Ur Squamous Epith Cells Few (Few) /hpf Urine Bacteria None seen /hpf Urine Casts 11-20 Hyaline Casts Present (None) /lpf Discharge Plan Discharge Clinical Impression: Dehydration Patient Disposition: Home Condition: Stable Instructions: Dehydration (ED) Additional Instructions: Drink plenty of fluid today and tomorrow. Avoid the heat. Return the ER if you lose consciousness, you develop chest pain, or have additional concerns. Patient Language: Tamazight Prescriptions: No Action levothyroxine 100 mcg tablet 100 mcg PO DAILY omeprazole 20 mg capsule,delayed release(DR/EC) 20 mg PO DAILY losartan 100 mg tablet 100 mg PO DAILY escitalopram oxalate 10 mg tablet 20 mg PO DAILY Follow-up/Referrals: Kiko,Davi Villalobos MD [Primary Care Provider] - 1 Week
[2025-01-03 13:51] LABS: Alanine Aminotransferase 51 U/L (6-35); Albumin Level 4.4 g/dL (3.5-5.1); Alkaline Phosphatase 107 U/L (38-126); Anion Gap 8 mmol/L (4-12); Aspartate Amino Transferase 56 U/L (14-36); Bilirubin,Total 0.8 mg/dL (0.2-1.3); Blood Urea Nitrogen 28 mg/dL (7-17); Calcium 9.3 mg/dL (8.4-10.2); Carbon Dioxide 30 mmol/L (22-30); Chloride 100 mmol/L (98-107); Creatine Kinase 86 U/L (30-135); Estimated CRCL calculation 33 ml/min; Estimated Glomerular Filt Rate 43; Glucose 122 mg/dL (65-110); Potassium 4.3 mmol/L (3.4-5.0); Sodium 138 mmol/L (137-145)
[2025-01-03 13:57] LABS: Add Urine Microscopic? YES; Appearance Urine Clear (Clear); Bacteria Urine None Seen /hpf; Bilirubin Urine 1+ (Negative); Blood Urine Negative (Negative); Color Urine Dark Yellow (Yellow); Glucose Urine UA Negative (Negative); Hyaline Casts Urine Present /lpf; Ketones Urine 1+ mg/dL (Negative); Leukocyte Esterase Ur 1+ LEU/UL (Negative); Need Manual Microscopic Reviewed; Nitrate Urine Negative (Negative); Protein Urine 1+ mg/dL (Negative); RBC Urine 0-2 /hpf (0-2); Squamous Epithelial Cell Urine Few /hpf (Few); WBC Urine 0-5 /hpf (0-3); pH Urine 5.5 (5.0-9.0)
[2025-01-03 14:57] VITALS: BP 153/60; PULSE 60
[2025-01-03 14:58] VITALS: BP 166/64; PULSE 62
[2025-01-03 15:01] VITALS: BP 157/74; PULSE 64
== END 2025-01-03 16:34 | disposition home or self-care (01) ==
PROVIDERS: Emergency Provider Emergency Medicine; PCP Internal Medicine
DX: E86.0 Dehydration (principal)
CPT/HCPCS: 36415; 71046; 80053; 81001; 82550; 85025; 87086; 93005; 96360; 99283; J7030